=== PATIENT | female | born 1950 | race Two or more races ===

== ENCOUNTER → 2023-01-27 | Outpatient (CLI) | payer BC | END | disposition home or self-care (01) | LOC: LAB 13:04 | PROVIDERS: ATTEND Internal Medicine | DX: E11.9 Type 2 diabetes mellitus without complications (principal); M10.9 Gout, unspecified | CPT/HCPCS: 82270 ==

== ENCOUNTER 2023-02-22 16:11 | Inpatient (IN) | payer BC ==
[~2023-02-22] VITALS: Ht 175.3 cm; Wt 102.2 kg
[2023-02-22 17:20] LABS: Basophils # (auto) 0.1 10 ^3/uL (0-0.2); Basophils % (auto) 1.2 % (0.0-2.0); Eosinophils # (auto) 0.2 10 ^3/uL (0-0.8); Eosinophils % (auto) 2.4 % (0.0-7.0); Hematocrit 39.2 % (36.0-46.0); Hemoglobin 12.9 g/dL (12.2-16.2); Lymphocytes # (auto) 2.6 10 ^3/uL (0.4-5.4); Lymphocytes % (auto) 28.6 % (10.0-50.0); Mean Corpuscular Hemoglobin 27.7 pg (28.0-32.0); Monocytes # (auto) 0.6 10 ^3/uL (0-1.3); Neutrophils # (auto) 5.7 10 ^3/uL (1.6-8.6); Neutrophils % (auto) 61.8 % (37.0-80.0); Nucleated Red Blood Cells % 0.1 %; Red Blood Cells 4.67 10^6/uL (4.0-5.20); Red Cell Distribution Width 18.2 % (11.8-14.3); White Blood Cell 9.3 10^3/uL (4.4-10.8)
[2023-02-22 17:38] LABS: INR 0.97 (0.9-1.15); Partial Thromboplastin Time 31.5 sec (24.6-33.4)
[2023-02-22 17:51] LABS: Albumin 3.7 g/dL (3.4-5.0); Calcium 9.1 mg/dL (8.5-10.1); Magnesium 2.4 mg/dL (1.6-2.6); Potassium 3.7 mmol/L (3.5-5.1)
[2023-02-22 17:55] LABS: BUN/Creatinine Ratio 16.5 (10.0-20.0); Bilirubin, Total 0.3 mg/dL (0.2-1.0); Total Protein 7.1 g/dL (6.4-8.2)
[2023-02-22] MEDS ORDERED: NITROGLYCERIN 0.4 MG SL TAB SL ONE (18:30)
[2023-02-22] MEDS ORDERED: ALLO100T PO (19:38)
[2023-02-22] MEDS ORDERED: METO-289 PO (19:38)
[2023-02-22] MEDS ORDERED: LOS25T PO (19:38)
[2023-02-22] MEDS ORDERED: GLUC1MIS2 (19:38)
[2023-02-22] MEDS ORDERED: METF-370 PO (19:38)
[2023-02-22] MEDS ORDERED: MELO-335 PO (19:38)
[2023-02-22] MEDS ORDERED: DAPA1TAB4 PO (19:38)
[2023-02-22] MEDS ORDERED: TRIA37.587 PO (19:38)
[2023-02-22] MEDS ORDERED: SEMA4INJ SC (19:38)
[2023-02-22] MEDS ORDERED: LATA0.008 EACHEYE (19:38)
[2023-02-22] MEDS ORDERED: PANT40TA57 PO (19:38)
[2023-02-22] MEDS ORDERED: AMLO1TAB22 PO (19:38)
[2023-02-22] MEDS ORDERED: TIMO0.5S32 EACHEYE (19:38)
[2023-02-22] MEDS ORDERED: DOCUSATE SOD 100 MG CAP PO PRN (21:30)
[2023-02-22] MEDS ORDERED: ACETAMINOPHEN 325 MG TAB PO PRN (21:30)
[2023-02-22] MEDS: SODIUM CHLORIDE 0.9% 1,000 ML IV SCH (21:30)
[2023-02-22] MEDS ORDERED: ONDANSETRON HCL 4 MG/2 ML VIAL IV PRN (21:30)
[2023-02-22] MEDS ORDERED: HYDROcodone-ACET 5/325MG TAB PO PRN (21:30)
[2023-02-22] MEDS ORDERED: MORPHINE SULFATE INJ 2 MG/ml SYRG IV PRN (21:30)
[2023-02-22] MEDS: NITROGLYCERIN 0.4 MG SL TAB SL PRN ×2 (23:39→23:51)
[2023-02-23] MEDS ORDERED: hydrALAZINE HCL 20 MG/ML VL IV PRN (04:30)
[2023-02-23 05:09] LABS: Basophils # (auto) 0.1 10 ^3/uL (0-0.2); Basophils % (auto) 0.9 % (0.0-2.0); Eosinophils # (auto) 0.2 10 ^3/uL (0-0.8); Eosinophils % (auto) 2.3 % (0.0-7.0); Hematocrit 39.1 % (36.0-46.0); Lymphocytes # (auto) 2.2 10 ^3/uL (0.4-5.4); Lymphocytes % (auto) 25.2 % (10.0-50.0); Mean Corpuscular Hemoglobin 28.1 pg (28.0-32.0); Mean Corpuscular Hgb Conc. 33.3 g/dL (32.0-36.0); Mean Corpuscular Volume 84.5 fL (80.0-100.0); Monocytes # (auto) 0.6 10 ^3/uL (0-1.3); Monocytes % (auto) 6.7 % (0.0-12.0); Neutrophils # (auto) 5.6 10 ^3/uL (1.6-8.6); Neutrophils % (auto) 64.9 % (37.0-80.0); Nucleated Red Blood Cells % 0.1 %; Red Blood Cells 4.62 10^6/uL (4.0-5.20); Red Cell Distribution Width 18.2 % (11.8-14.3); White Blood Cell 8.6 10^3/uL (4.4-10.8)
[2023-02-23 05:25] LABS: Albumin 3.3 g/dL (3.4-5.0); BUN/Creatinine Ratio 15.8 (10.0-20.0); Calcium 9.2 mg/dL (8.5-10.1)
[2023-02-23 05:28] LABS: Bilirubin, Total 0.5 mg/dL (0.2-1.0); Total Protein 7.2 g/dL (6.4-8.2)
[2023-02-23] MEDS ORDERED: POTASSIUM CHL 20 Meq TABLET PO ONE (07:00)
[2023-02-23] MEDS: SODIUM CHLORIDE 0.9% 1,000 ML IV SCH (08:04)
[2023-02-23] MEDS ORDERED: METOPROLOL SUCCINATE XL 50 MG TAB PO SCH (10:00)
[2023-02-23] MEDS ORDERED: amLODIPine BESYLATE 5 MG TAB PO SCH (10:00)
[2023-02-23] MEDS ORDERED: ENOXAPARIN SOD 40 MG/0.4 ML SYRINGE SC SCH (10:00)
[2023-02-23 16:06] VITALS: BP 127/81
[2023-02-23] MEDS ORDERED: ATO40T PO (16:40)
[2023-02-23] MEDS ORDERED: ASPI1TAB20 PO (16:40)
== END 2023-02-23 16:26 | disposition home or self-care (01) | DRG 305 ==
LOC: ER 16:11 → EDBD 16:11 → TELE 21:20
PROVIDERS: ADMIT Internal Medicine; ATTEND Internal Medicine
DX: I16.0 Hypertensive urgency (principal); N17.9 Acute kidney failure, unspecified; I12.9 Hypertensive chronic kidney disease with stage 1 through stage 4 chronic kidney disease, or unspecified chronic kidney disease; E11.22 Type 2 diabetes mellitus with diabetic chronic kidney disease; E78.5 Hyperlipidemia, unspecified; N18.9 Chronic kidney disease, unspecified; E66.9 Obesity, unspecified; E87.6 Hypokalemia; Z96.653 Presence of artificial knee joint, bilateral; I25.10 Atherosclerotic heart disease of native coronary artery without angina pectoris; R07.89 Other chest pain; K21.9 Gastro-esophageal reflux disease without esophagitis; Z68.33 Body mass index [BMI] 33.0-33.9, adult; Z95.5 Presence of coronary angioplasty implant and graft
CPT/HCPCS: 36415; 71045; 80053; 83735; 83880; 84484; 85025; 85379; 85610; 85730; 93005; 93306; G0378

== ENCOUNTER → 2023-03-06 | Outpatient (CLI) | payer BC ==
[~2023-03-06] MED LIST: ALLO100T PO; AMLO1TAB22 PO; ASPI1TAB20 PO; ATO40T PO; DAPA1TAB4 PO; GLUC1MIS2; LATA0.008 EACHEYE; LOS25T PO; MELO-335 PO; METF-370 PO; METO-289 PO; PANT40TA57 PO; SEMA4INJ SC; TIMO0.5S32 EACHEYE; TRIA37.587 PO
[2023-03-06 15:54] LABS: Calcium 9.5 mg/dL (8.5-10.1)
[2023-03-06 15:58] LABS: BUN/Creatinine Ratio 17.9 (10.0-20.0); Potassium 3.7 mmol/L (3.5-5.1)
== END | disposition home or self-care (01) ==
LOC: LAB 15:02
PROVIDERS: ATTEND Internal Medicine
DX: E11.9 Type 2 diabetes mellitus without complications (principal); M10.9 Gout, unspecified
CPT/HCPCS: 36415; 80048

== ENCOUNTER → 2023-04-12 | Outpatient (CLI) | payer BC ==
[~2023-04-12] MED LIST changes: +BUPIVACAINE HCL 0.25% P/F 10 ML VIAL ONE; +LIDOCAINE 2%HCL (LOCAL ANESTH.) INJ 10ml MDV ONE; +methylPREDNISolone ACETATE 80 MG/ML VL ONE
== END | disposition home or self-care (01) ==
LOC: XYW 12:47
PROVIDERS: ATTEND Orthopaedic Surgery Adult Reconstructive Orthopaedic Surgery
DX: M75.101 Unspecified rotator cuff tear or rupture of right shoulder, not specified as traumatic (principal)
CPT/HCPCS: 20610; 73020; 77002; J1040; J2001; J3490; Q9967

== ENCOUNTER → 2023-08-31 | Outpatient (CLI) | payer BC ==
[~2023-08-31] MED LIST changes: +AML5T PO; -BUPIVACAINE HCL 0.25% P/F 10 ML VIAL ONE; +ISOS1TAB28 PO; +LATA0.008 OP; -LIDOCAINE 2%HCL (LOCAL ANESTH.) INJ 10ml MDV ONE; +LOSA25TA15 PO; +ROSU40TA81 PO; -methylPREDNISolone ACETATE 80 MG/ML VL ONE
[2023-08-31 11:04] LABS: Chloride 104 mmol/L (98-107); Potassium 3.6 mmol/L (3.5-5.1); Sodium 141 mmol/L (136-145)
[2023-08-31 11:05] LABS: Anion Gap 10 (5-15); Carbon Dioxide 27 mmol/L (20-30)
[2023-08-31 11:06] LABS: Calcium 9.6 mg/dL (8.5-10.1)
[2023-08-31 11:10] LABS: BUN/Creatinine Ratio 10.4 (10.0-20.0); Blood Urea Nitrogen 12 mg/dL (9-23); Glucose 115 mg/dL (74-106)
== END | disposition home or self-care (01) ==
LOC: LAB 10:09
PROVIDERS: ATTEND Internal Medicine
DX: E11.9 Type 2 diabetes mellitus without complications (principal)
CPT/HCPCS: 36415; 80048

== ENCOUNTER → 2023-09-05 | Outpatient (CLI) | payer BC, MEDICAID ==
[~2023-09-05] VITALS: Ht 160 cm; Wt 99.8 kg
[~2023-09-05] MED LIST changes: +ADENOSINE 84 MG in GIVE UN-DILUTED 0 ML IV ONE
== END | disposition home or self-care (01) ==
LOC: XYW 10:47
PROVIDERS: ATTEND Student in an Organized Health Care Education/Training Program
DX: R06.02 Shortness of breath (principal)
CPT/HCPCS: 78452; 93017; A9500; J0153

== ENCOUNTER → 2024-02-12 | Outpatient (CLI) | payer BC ==
[~2024-02-12] MED LIST changes: -ADENOSINE 84 MG in GIVE UN-DILUTED 0 ML IV ONE; -ATO40T PO; +ATOR-507 PO; +LOSA-533 PO; -LOSA25TA15 PO; -MELO-335 PO; +MELO15TA29 PO
[2024-02-12 10:29] LABS: Anion Gap 4 (5-15); Carbon Dioxide 34 mmol/L (20-30); Chloride 102 mmol/L (98-107); Potassium 3.8 mmol/L (3.5-5.1); Sodium 140 mmol/L (136-145)
[2024-02-12 10:35] LABS: BUN/Creatinine Ratio 14.6 (10.0-20.0); Blood Urea Nitrogen 15 mg/dL (9-23); Glucose 104 mg/dL (74-106)
== END | disposition home or self-care (01) ==
LOC: LAB 09:33
PROVIDERS: ATTEND Internal Medicine
DX: Z12.11 Encounter for screening for malignant neoplasm of colon (principal); E11.9 Type 2 diabetes mellitus without complications
CPT/HCPCS: 36415; 80048; 82270

== ENCOUNTER → 2024-04-01 | Outpatient (CLI) | payer BC | END | disposition home or self-care (01) | LOC: XYW 13:02 | PROVIDERS: ATTEND Student in an Organized Health Care Education/Training Program | DX: I08.0 Rheumatic disorders of both mitral and aortic valves (principal); R06.02 Shortness of breath | CPT/HCPCS: 93306 ==

== ENCOUNTER → 2024-05-09 | Outpatient (CLI) | payer BC ==
[~2024-05-09] VITALS: Ht 160 cm; Wt 99.3 kg
[2024-05-09] MEDS: ADENOSINE 83 MG in GIVE UN-DILUTED 0 ML IV ONE (11:21)
== END | disposition home or self-care (01) ==
LOC: XYW 10:20
PROVIDERS: ATTEND Student in an Organized Health Care Education/Training Program
DX: I25.10 Atherosclerotic heart disease of native coronary artery without angina pectoris (principal); I25.9 Chronic ischemic heart disease, unspecified; E11.9 Type 2 diabetes mellitus without complications; I10 Essential (primary) hypertension
CPT/HCPCS: 78452; A9500; J0153

== ENCOUNTER → 2024-06-11 | Day surgery (SDC) | payer BC ==
[2024-06-05 10:47] LABS: Basophils # (auto) 0.1 10 ^3/uL (0-0.2); Eosinophils # (auto) 0.3 10 ^3/uL (0-0.8); Eosinophils % (auto) 3.3 % (0.0-7.0); Hematocrit 41.6 % (36.0-46.0); Lymphocytes # (auto) 2.8 10 ^3/uL (0.4-5.4); Lymphocytes % (auto) 33.5 % (10.0-50.0); Mean Corpuscular Hgb Conc. 33.7 g/dL (32.0-36.0); Mean Corpuscular Volume 86.1 fL (80.0-100.0); Monocytes # (auto) 0.6 10 ^3/uL (0-1.3); Monocytes % (auto) 7.3 % (0.0-12.0); Neutrophils # (auto) 4.6 10 ^3/uL (1.6-8.6); Neutrophils % (auto) 54.9 % (37.0-80.0); Platelet Count (auto) 309 10^3/uL (140-450); Red Blood Cells 4.83 10^6/uL (4.0-5.20); Red Cell Distribution Width 17.4 % (11.8-14.3); White Blood Cell 8.4 10^3/uL (4.4-10.8)
[2024-06-05 11:01] LABS: Alanine Aminotransferase 12 U/L (7-40); Albumin 4.9 g/dL (3.2-4.8); Alkaline Phosphatase 83 U/L (46-116); Anion Gap 8 (5-15); Aspartate Aminotransferase 9 U/L (13-40); BUN/Creatinine Ratio 16.9 (10.0-20.0); Bilirubin, Total 0.3 mg/dL (0.2-1.0); Blood Urea Nitrogen 24 mg/dL (9-23); Calcium 10.2 mg/dL (8.7-10.4); Carbon Dioxide 29 mmol/L (20-30); Chloride 105 mmol/L (98-107); Glucose 112 mg/dL (74-106); INR 0.99 (0.9-1.15); Partial Thromboplastin Time 28.7 SEC (24.5-34.5); Potassium 3.8 mmol/L (3.5-5.1); Prothrombin Time 10.5 sec (9.3-11.8); Sodium 142 mmol/L (136-145); Total Protein 7.9 g/dL (5.7-8.2)
[2024-06-05 11:17] LABS: Urine Bacteria FEW /hpf (None Seen); Urine Blood TRACE /uL (Negative); Urine Clarity Turbid (Clear); Urine Color Yellow (Yellow); Urine Mucus FEW (None Seen); Urine Protein, UAD 1+ (Negative); Urine Specific Gravity 1.033 (1.001-1.035); Urine Urobilinogen 2 mg/dL (Negative); Urine WBC 48 /hpf (0 - 5)
[~2024-06-11] VITALS: Ht 160 cm; Wt 98.0 kg
[~2024-06-11] MED LIST changes: -AMLO1TAB22 PO; +ASPI-498 OR; -ASPI1TAB20 PO; -ATOR-507 PO; +CEPH500C PO; +EPINEPHrine HCL 1 MG/1 ML AMP ONE; +HYDR1TAB97 PO; +KETOROLAC TROMETH 30 MG/ML 1ML VIAL IV ONE; +KETOROLAC TROMETH 30 MG/ML 1ML VIAL ONE; -LATA0.008 EACHEYE; -LOSA-533 PO; +METOCLOPRAMIDE HCL 5MG/ml INJ 2ml VIAL IV ONE; +MIDAZOLAM HCL 2MG/2ML 2ml VIAL (1mg/ml) ONE; +MORPHINE SULF PF 5 MG/10 ML VIAL ONE; +MORPHINE SULFATE 4 MG/ML SYR/VIAL IV PRN; +ONDANSETRON HCL 4 MG/2 ML VIAL IV ONE; +ROPIVACAINE 0.5% (5MG/ML) 20ML AMPULE IJ ONE; +SUGAMMADEX 200mg/2ml Vial (100MG/ML) IV ONE; +TRANEXAMIC ACID 10 ML ONE; +ceFAZolin 2 GM/D5W100ml 100 ML IV ONE; +hydrALAZINE HCL 20 MG/ML VL IV PRN
[2024-06-11 14:21] VITALS: PULSE 96; RESP 17; TEMP 97.5; O2SAT 97
[2024-06-11] MEDS: KETOROLAC TROMETH 30 MG/ML 1ML VIAL IV ONE (15:20)
[2024-06-11 15:25] VITALS: BP 148/73; PULSE 96; RESP 17; O2SAT 98
== END | disposition home or self-care (01) ==
LOC: SUR 10:57
PROVIDERS: ATTEND Orthopaedic Surgery Sports Medicine
DX: M75.112 Incomplete rotator cuff tear or rupture of left shoulder, not specified as traumatic (principal); M25.812 Other specified joint disorders, left shoulder; M94.212 Chondromalacia, left shoulder; M65.812 Other synovitis and tenosynovitis, left shoulder; I25.2 Old myocardial infarction; E11.9 Type 2 diabetes mellitus without complications; I25.10 Atherosclerotic heart disease of native coronary artery without angina pectoris; K21.9 Gastro-esophageal reflux disease without esophagitis; E66.01 Morbid (severe) obesity due to excess calories; Z90.710 Acquired absence of both cervix and uterus; Z98.890 Other specified postprocedural states; Z98.41 Cataract extraction status, right eye; Z68.41 Body mass index [BMI] 40.0-44.9, adult; Z79.82 Long term (current) use of aspirin; Z79.84 Long term (current) use of oral hypoglycemic drugs
CPT/HCPCS: 29826; 29827; 36415; 80053; 81001; 82962; 85025; 85610; 85730; C1713; J0171; J1885; J2250; J2270; J2795; A4565

== ENCOUNTER → 2024-08-28 | Outpatient (CLI) | payer BC ==
[~2024-08-28] MED LIST changes: -EPINEPHrine HCL 1 MG/1 ML AMP ONE; -KETOROLAC TROMETH 30 MG/ML 1ML VIAL IV ONE; -KETOROLAC TROMETH 30 MG/ML 1ML VIAL ONE; -METOCLOPRAMIDE HCL 5MG/ml INJ 2ml VIAL IV ONE; -MIDAZOLAM HCL 2MG/2ML 2ml VIAL (1mg/ml) ONE; -MORPHINE SULF PF 5 MG/10 ML VIAL ONE; -MORPHINE SULFATE 4 MG/ML SYR/VIAL IV PRN; -ONDANSETRON HCL 4 MG/2 ML VIAL IV ONE; -ROPIVACAINE 0.5% (5MG/ML) 20ML AMPULE IJ ONE; -SUGAMMADEX 200mg/2ml Vial (100MG/ML) IV ONE; -TRANEXAMIC ACID 10 ML ONE; -ceFAZolin 2 GM/D5W100ml 100 ML IV ONE; -hydrALAZINE HCL 20 MG/ML VL IV PRN
== END | disposition home or self-care (01) ==
LOC: LAB 09:21
PROVIDERS: ATTEND Internal Medicine
DX: E11.9 Type 2 diabetes mellitus without complications (principal)
CPT/HCPCS: 36415; 83036

== ENCOUNTER → 2024-10-16 | Outpatient (CLI) | payer BC ==
[2024-10-16 08:33] LABS: Basophils # (auto) 0.1 10 ^3/uL (0-0.2); Basophils % (auto) 1.1 % (0.0-2.0); Eosinophils # (auto) 0.2 10 ^3/uL (0-0.8); Eosinophils % (auto) 3.1 % (0.0-7.0); Hemoglobin 13.7 g/dL (12.2-16.2); Lymphocytes # (auto) 2.4 10 ^3/uL (0.4-5.4); Lymphocytes % (auto) 33.5 % (10.0-50.0); Mean Corpuscular Hemoglobin 28.7 pg (28.0-32.0); Mean Corpuscular Hgb Conc. 33.5 g/dL (32.0-36.0); Mean Corpuscular Volume 85.6 fL (80.0-100.0); Monocytes # (auto) 0.5 10 ^3/uL (0-1.3); Neutrophils % (auto) 55.3 % (37.0-80.0); Platelet Count (auto) 269 10^3/uL (140-450); Red Blood Cells 4.79 10^6/uL (4.0-5.20); Red Cell Distribution Width 16.3 % (11.8-14.3); White Blood Cell 7.3 10^3/uL (4.4-10.8)
[2024-10-16 10:36] LABS: Alkaline Phosphatase 79 U/L (46-116); Anion Gap 10 (5-15); Calcium 10.1 mg/dL (8.7-10.4); Carbon Dioxide 28 mmol/L (20-31); Chloride 103 mmol/L (98-107); Potassium 3.7 mmol/L (3.5-5.1); Sodium 141 mmol/L (136-145)
[2024-10-16 10:37] LABS: Albumin 4.8 g/dL (3.2-4.8); BUN/Creatinine Ratio 15.4 (10.0-20.0); Blood Urea Nitrogen 18 mg/dL (9-23); Folate (Folic Acid) 13.71 ng/mL (>5.38)
[2024-10-16 10:38] LABS: Alanine Aminotransferase 9 U/L (7-40); Aspartate Aminotransferase 14 U/L (13-40); Creatine Kinase IFCC 82 U/L (34-145); Glucose 124 mg/dL (74-106)
[2024-10-16 10:39] LABS: Bilirubin, Total 0.5 mg/dL (0.2-1.0); Total Protein 7.4 g/dL (5.7-8.2)
== END | disposition home or self-care (01) ==
LOC: LAB 08:06
PROVIDERS: ATTEND Internal Medicine
DX: E11.22 Type 2 diabetes mellitus with diabetic chronic kidney disease (principal); I25.10 Atherosclerotic heart disease of native coronary artery without angina pectoris; N18.30 Chronic kidney disease, stage 3 unspecified
CPT/HCPCS: 36415; 80053; 82550; 82607; 82746; 83036; 84443; 85025

== ENCOUNTER → 2024-10-22 | Outpatient (CLI) | payer BC | END | disposition home or self-care (01) | LOC: LAB 13:18 | PROVIDERS: ATTEND Internal Medicine | DX: N39.0 Urinary tract infection, site not specified (principal) | CPT/HCPCS: 87086 ==

== ENCOUNTER → 2024-11-28 | Outpatient (CLI) | payer BC ==
[2024-11-28 07:59] LABS: Calcium 9.7 mg/dL (8.7-10.4); Chloride 105 mmol/L (98-107); Potassium 3.9 mmol/L (3.5-5.1); Sodium 141 mmol/L (136-145)
[2024-11-28 08:00] LABS: Anion Gap 8 (5-15); Carbon Dioxide 28 mmol/L (20-31)
[2024-11-28 08:05] LABS: BUN/Creatinine Ratio 17.5 (10.0-20.0); Blood Urea Nitrogen 21 mg/dL (9-23); Glucose 110 mg/dL (74-106)
== END | disposition home or self-care (01) ==
LOC: LAB 07:26
PROVIDERS: ATTEND Internal Medicine
DX: N18.31 Chronic kidney disease, stage 3a (principal)
CPT/HCPCS: 36415; 80048

== ENCOUNTER 2024-12-12 15:37 | Inpatient (IN) | payer BC ==
[~2024-12-12] VITALS: Ht 160 cm; Wt 99.8 kg
--- NOTE | 2024-12-12 16:06 | ED.PDOC ---
HPI Comments 74 y/o F, BIBA with PMHX of HTN, DM, AK, CKD, and CAD presents to the ED for CC of high blood pressure. EMS reports, patient is coming from home where she has been experiencing symptoms of vertigo since early this morning (12/12/24). EMS comments, that patient did suffer a ground level fall causing her to fall to her knees; patient ambulated well to ambulance. Patient states, that these episodes of vertigo usually manifest when her blood pressure is high; patient's blood pressure read at 178/124 in route to the ED. Patient was given 4mg of Zofran P.O. Patient denies head injury, LOC, fatigue, weakness, nausea, or vomiting. No other symptoms or modifying factors present at this time. Time Seen by MD: 15:45 Primary Care Provider: Andrés Reviewed Notes: Nurses Notes, Block Feeder Notes, Medications, Allergies Allergies: Coded Allergies: NO KNOWN ALLERGIES (Unverified , 05/09/24) Home Meds Active Scripts Cephalexin Monohydrate (Cephalexin) 500 Mg Cap, 1 CAP PO TID for 5 Days, #15 CAP Prov:ABEL YODER MD 06/11/24 Aspirin (ASPIRIN 81) 81 Mg Tab, 81 MG OR DAILY for 20 Days, #20 TAB Prov:ABEL YODER MD 06/11/24 Hydrocodone-Acetaminophen (Hydrocodone/Acetaminophen 5-325 mg) 1 Tab Tab, 1 TAB PO Q6HP PRN for 7 Days, #28 TAB Prov:ABEL YODER MD 06/11/24 Reported Medications Semaglutide (Ozempic) 4 Mg/3 Ml Inj, SC 02/22/23 Losartan Potassium (Losartan Potassium) 25 Mg Tab, 1 TAB PO DAILY 02/22/23 Pantoprazole Sodium Sesquihydr (Pantoprazole Sodium Dr) 40 Mg Tab, 1 TAB PO BID 02/22/23 Glucose Blood (Accu-Chek Guide) 1 Mis Mis, 1 STRIP BID 02/22/23 Metoprolol Succinate (Metoprolol Succinate Er) 50 Mg Tab, 1 TAB PO BID 02/22/23 Dapagliflozin Propanediol (Farxiga) 10 Mg Tab, 1 TAB PO QAM 02/22/23 Allopurinol (Allopurinol) 100 Mg Tab, 1 TAB PO DAILY 02/22/23 Timolol Maleate (Ophth) (Timolol Maleate) 0.5 % Dasia, 1 DROP EACHEYE QAM 02/22/23 Meloxicam (Meloxicam) 15 Mg Tab, 1 TAB PO DAILY 02/22/23 Latanoprost (LATANOPROST) 0.005 % Dasia, 0.005 % OP, ML 03/01/22 Metformin Hydrochloride (Metformin Hcl) 500 Mg Tab, 500 MG PO BID, TAB 03/01/22 Rosuvastatin Calcium (Crestor) 40 Mg Tab, 40 MG PO DAILY, TAB 03/01/22 Hydrochlorothiazide W/Triamter (Dyazide 37.5/25MG) 1 Cap Cp, 1 CAP PO DAILY, CAP 03/01/22 Amlodipine Besylate (NORVASC TABLET) 5 Mg Tb, 5 MG PO DAILY, TAB 03/01/22 Isosorbide Mononitrate (Isosorbide Mononitrate Er) 30 Mg Tab, 30 MG PO DAILY, TAB 03/01/22 Information Source: Patient, Emergency Med Personnel Mode of Arrival: EMS Severity: Moderate Timing: Hours Duration: Since onset Prehospital treatment: None Onset: At Rest Cardiac Risk Factors: HTN, Diabetes PE Risk Factors: None History of: None Modifying Factors: Nothing Associated Signs and Symptoms: None Past Medical History PAST MEDICAL HISTORY: Arthritis, CAD, DM, High Lipids, HTN Surgical History (Other): cataracts, left shoulder 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 Family History Family History: Reviewed,noncontributory to illness Social History Smoker: Non-Smoker Alcohol: Denies ETOH Use Drugs: Denies Drug Use Lives In: Home Constitutional: denies: chills, diaphoresis, fatigue, fever, malaise, sweats, weakness, others EENTM: denies: blurred vision, double vision, ear bleeding, ear discharge, ear drainage, ear pain, ear ringing, eye pain, eye redness, hearing loss, mouth pain, mouth swelling, nasal discharge, nose bleeding, nose congestion, nose pain, photophobia, tearing, throat pain, throat swelling, voice changes, others Respiratory: denies: cough, hemoptysis, orthopnea, SOB at rest, shortness of breath, SOB with excertion, stridor, wheezing, others Cardiovascular: denies: chest pain, dizzy spells, diaphoresis, Dyspnea on exertion, edema, irregular heart beat, left arm pain, lightheadedness, palpitations, PND, syncope, others Gastrointestinal: denies: abdomen distended, abdominal pain, blood streaked bowels, constipated, diarrhea, dysphagia, difficulty swallowing, hematemesis, melena, nausea, poor appetite, poor fluid intake, rectal bleeding, rectal pain, vomiting, others Genitourinary: denies: abnormal vagina bleeding, burning, dyspareunia, dysuria, flank pain, frequency, hematuria, incontinence, pain, , vagina d ischarge, urgency, others Neurological: reports: dizziness; denies: fainting, headache, left sided numbness, left sided weakness, numbness, paresthesia, pre-existing deficit, right sided numbness, right sided weakness, seizure, speech problems, tingling, tremors, weakness, others Musculoskeletal: denies: back pain, gout, joint pain, joint swelling, muscle pain, muscle stiffness, neck pain, others Integumetry: denies: bruises, change in color, change in hair/nails, dryness, laceration, lesions, lumps, rash, wounds, others Allergic/Immunocompromised: denies: Difficulty Healing, Frequent Infections, Hives, Itching, others Hematologic/Lymphatic: denies: anemia, blood clots, easy bleeding, easy bruising, swollen glands, others Endocrine: denies: excessive hunger, excessive sweating, excessive thirst, excessive urination, flushing, intolerance to cold, intolerance to heat, unexplained weight gain, unexplained weight loss, others Psychiatric: denies: anxiety, bipolar disorder, depression, hopeless, panic disorder, schizophrenia, sleepless, suicidal, others All Other Systems: Reviewed and Negative Physical Exam General Appearance: Moderate Distress HEENT: Normal ENT Inspection, Pharynx Normal, TMs Normal Neck: Full Range of Motion, Non-Tender, Normal, Normal Inspection Respiratory: Chest Non-Tender, Lungs Clear, No Accessory Muscle Use, No Respiratory Distress, Normal Breath Sounds Cardiovascular: No Edema, No JVD, No Murmur, No Gallop, Normal Peripheral Pu lses, Regular Rate/Rhythm Breast Exam: Deferred Gastrointestinal: No Organomegaly, Non Tender, No Pulsatile Mass, Normal Bowel Sounds, Soft Genitalia: Deferred Pelvic: Deferred Rectal: Deferred Extremities: No calf tenderness, Normal capillary refill, Normal inspection, Normal range of motion, Non-tender, No pedal edema Musculoskeletal : Apperance: Normal Neurologic: Alert, mail distributor II-XII nml as Tested, Motor Weakness, Normal Affect, Normal Mood, No Sensory Deficits Cerebellar Function: Normal Reflexes: Normal Skin: Dry, Normal Color, Warm Lymphatic: No Adenopathy EKG EKG : Pulse Rate (adult): 83 [place]: Normal Cardiac Rhythm: NSR Block: None ST: Nonsp Was a procedure done? Was a procedure done?: No CP Differential Dx Differential Diagnosis: N/A Differential Diagnosis: HTN Essential, HTN Accelerated X-Ray, Labs, Meds, VS Vital Signs Date Time Temp Pulse Resp B/P (MAP) Pulse Ox O2 Delivery O2 Flow Rate FiO2 12/12/24 16:56 84 171/83 12/12/24 16:31 97.6 89 16 171/83 (112) 97 97.6 12/12/24 16:31 89 16 97 Room Air* 0 21 12/12/24 16:31 83 12/12/24 16:06 97.9 86 18 178/124 (142) 99 97.9 Lab Test 12/12/24 16:56 12/12/24 16:03 Range/Units Troponin I High Sensitivity Pending 3 L </=34 ng/L White Blood Count 8.0 4.4-10.8 10^3/uL Red Blood Count 5.00 4.0-5.20 10^6/uL Hemoglobin 14.6 12.2-16.2 g/dL Hematocrit 43.8 36.0-46.0 % Mean Corpuscular Volume 87.4 80.0-100.0 fL Mean Corpuscular Hemoglobin 29.2 28.0-32.0 pg Mean Corpuscular Hemoglobin Concent 33.4 32.0-36.0 g/dL Red Cell Distribution Width 16.5 H 11.8-14.3 % Platelet Count 328 140-450 10^3/uL Mean Platelet Volume 8.1 6.9-10.8 fL Neutrophils (%) (Auto) 59.9 37.0-80.0 % Lymphocytes (%) (Auto) 30.3 10.0-50.0 % Monocytes (%) (Auto) 7.2 0.0-12.0 % Eosinophils (%) (Auto) 1.7 0.0-7.0 % Basophils (%) (Auto) 0.9 0.0-2.0 % Neutrophils # (Auto) 4.8 1.6-8.6 10 ^3/uL Lymphocytes # (Auto) 2.4 0.4-5.4 10 ^3/uL Monocytes # (Auto) 0.6 0-1.3 10 ^3/uL Eosinophils # (Auto) 0.1 0-0.8 10 ^3/uL Basophils # (Auto) 0.1 0-0.2 10 ^3/uL Nucleated Red Blood Cells 0.0 % Sodium Level 140 136-145 mmol/L Potassium Level 3.8 3.5-5.1 mmol/L Chloride Level 103 98-107 mmol/L Carbon Dioxide Level 28 20-31 mmol/L Anion Gap 9 5-15 Blood Urea Nitrogen 23 9-23 mg/dL Creatinine 1.30 H 0.550-1.02 mg/dL Glomerular Filtration Rate Calc 43 >90 mL/min BUN/Creatinine Ratio 17.7 10.0-20.0 Serum Glucose 98 74-106 mg/dL Calcium Level 10.5 H 8.7-10.4 mg/dL B-Type Natriuretic Peptide 39.70 0-100 pg/mL Current Medications Medications (Trade) Dose Ordered Sig/Eboni Route Start Time Stop Time Status Last Admin Aspirin 162 mg ONCE ONCE PO 12/12/24 16:00 12/12/24 16:01 DC 12/12/24 16:52 Nicardipine HCl 250 ml @ 50 mls/hr Q5H IV 12/12/24 16:00 12/12/24 16:56 CXR: IMPRESSION: 1. No acute cardiopulmonary disease. Images Reviewed?: Images reviewed and evaluated by me Time of 1ST Reevaluation: 16:15 Reevaluation 1ST: Unchanged Patient Education/Counseling: Diagnosis, Treatment, Prognosis Family Education/Counseling: No Family Present Departure 1 Departure Time of Disposition: 17:24 Impression: Primary Impression: Accelerated hypertension Additional Impression: Autonomic dysfunction Disposition: 09 ADMITTED INPATIENT Admit to: [facility] Condition: Fair Critical Care Note Critical Care Time?: Yes (55 min-critical care time only) Stability Stability form required: Yes Unstable for transfer: Telemetry monitoring (Telemetry monitoring required), ED Physician Assesment (Clinical assesment) Heart Score Heart Score: Heart Score Response (Comments) Value History Moderate Suspicious 1 EKG Repolarization Disturb 1 Age >65 2 Risk Factors 1 or 2 risk factors 1 Troponin N/A 0 Total 5 I personally scribed for MARTITA GRANGER MD ([email or web address]) on 12/12/24 at 16:06. Electronically submitted by Opal Clinton ([employer]). I personally scribed for MARTITA GRANGER MD ([email or web address]) on 12/12/24 at 17:03. Electronically submitted by Opal Clinton ([employer] MARTITA GRANGER MD Dec 12, 2024 16:06
[2024-12-12 16:13] LABS: Basophils # (auto) 0.1 10 ^3/uL (0-0.2); Basophils % (auto) 0.9 % (0.0-2.0); Eosinophils # (auto) 0.1 10 ^3/uL (0-0.8); Eosinophils % (auto) 1.7 % (0.0-7.0); Hematocrit 43.8 % (36.0-46.0); Hemoglobin 14.6 g/dL (12.2-16.2); Lymphocytes # (auto) 2.4 10 ^3/uL (0.4-5.4); Lymphocytes % (auto) 30.3 % (10.0-50.0); Mean Corpuscular Hemoglobin 29.2 pg (28.0-32.0); Mean Corpuscular Hgb Conc. 33.4 g/dL (32.0-36.0); Mean Corpuscular Volume 87.4 fL (80.0-100.0); Monocytes # (auto) 0.6 10 ^3/uL (0-1.3); Monocytes % (auto) 7.2 % (0.0-12.0); Neutrophils # (auto) 4.8 10 ^3/uL (1.6-8.6); Neutrophils % (auto) 59.9 % (37.0-80.0); Platelet Count (auto) 328 10^3/uL (140-450); Red Cell Distribution Width 16.5 % (11.8-14.3)
[2024-12-12 16:30] LABS: Chloride 103 mmol/L (98-107); Potassium 3.8 mmol/L (3.5-5.1); Sodium 140 mmol/L (136-145)
[2024-12-12 16:31] VITALS: PULSE 89; RESP 16; O2SAT 97
[2024-12-12 16:31] LABS: Anion Gap 9 (5-15); Carbon Dioxide 28 mmol/L (20-31)
--- NOTE | 2024-12-12 16:35 | DVH ---
CHEST RADIOGRAPH Indication: CP Technique: Single frontal view of the chest was obtained Comparison: XY CHEST PORTABLE on DOS: 02/22/23 FINDINGS: Lines and Tubes: None Lungs: No focal consolidation. Pleura: No effusion. No pneumothorax. Cardiomediastinal contours: Unremarkable Bones: No acute osseous abnormality. IMPRESSION: 1. No acute cardiopulmonary disease.
[2024-12-12 16:36] LABS: BUN/Creatinine Ratio 17.7 (10.0-20.0); Glucose 98 mg/dL (74-106)
[2024-12-12 16:38] LABS: Blood Urea Nitrogen 23 mg/dL (9-23); Calcium 10.5 mg/dL (8.7-10.4)
[2024-12-12] MEDS: ASPirin 81 mg TAB PO ONE (16:52)
[2024-12-12 18:01] LABS: Urine Bacteria None Seen /hpf (None Seen)
[2024-12-12 18:18] LABS: Urine Blood Negative /uL (Negative); Urine Clarity Clear (Clear); Urine Color Colorless (Yellow); Urine Protein, UAD Negative (Negative); Urine Specific Gravity 1.007 (1.001-1.035); Urine Squamous Epithelial Cell FEW /hpf (<5); Urine Urobilinogen Normal (Negative); Urine WBC < 1 /HPF (0-5)
--- NOTE | 2024-12-12 18:58 | ECG ---
[facility] Test Date: 2024-12-12 Test Time: 16:15:53 Pat Name: GLORIA RIVAS Department: ED Room: [address] [place] [address] Gender: F Motor Adjuster: RUBI : 1950 Requested By: MARTITA GRANGER Order Number: [id number] Reading MD: Maicol Bowen Measurements Intervals [place] Rate: 83 P: 67 NC: 145 QRS: 23 QRSD: 87 T: 64 QT: 389 QTc: 457 Interpretive Statements Sinus rhythm Electronically Signed On 12-13-2024 18:49:19 PDT by Maicol Bowen Please click the below link to view image of tracing.
[2024-12-12] MEDS ORDERED: MORPHINE SULFATE INJ 2 MG/ml SYRG IV PRN (20:00)
[2024-12-12] MEDS ORDERED: NITROGLYCERIN 0.4 MG SL TAB SL PRN (20:00)
[2024-12-12] MEDS ORDERED: DEXTROSE (50%) 50ML SYRG IV PRN (20:15)
[2024-12-12] MEDS: InsuLIN REG 1unit/0.01ml Soln (100units/ml) SC SCH (22:00)
[2024-12-12] MEDS: ACCU-CHEK COMFORT CURVE STRIP VI SCH (22:00)
--- NOTE | 2024-12-12 22:27 | DVH ---
CT BRAIN WITHOUT CONTRAST HISTORY: Headache/hypertension TECHNIQUE: Axial scans were obtained from the skull base through the vertex without contrast. [place] l and coronal reformats were generated. One or more of the following radiation dose reduction techniq ues were used for this examination: automated exposure control, adjustment of the mA and/or kV accord ing to patient size, use of iterative reconstruction technique. COMPARISON: None available FINDINGS: No acute intracranial hemorrhage or evidence of large vessel territorial infarction identified at thi s time. No midline shift. The basilar cisterns are patent. The visualized paranasal sinuses and mastoid air cells are clear. No grossly displaced calvarial abno rmalities identified. IMPRESSION: No acute intracranial findings. If symptoms persist, follow-up MRI may be considered to further evalu ate.
[2024-12-12] MEDS: METOPROLOL TARTRATE 50 MG TAB PO SCH (22:44)
[2024-12-12] MEDS: ATORVASTATIN 20 MG TAB PO SCH (22:44)
[2024-12-12 23:19] VITALS: PULSE 82; RESP 13; O2SAT 97
[2024-12-13] VITALS (10 sets, daily range): BP systolic 94–108; BP diastolic 58–67; PULSE 76–97; RESP 16–18; TEMP 97.4–98; O2SAT 95–98
[2024-12-13] MEDS: ACETAMINOPHEN 325 MG TAB PO PRN (01:19)
--- NOTE | 2024-12-13 04:25 | DVHHP2 ---
History of Present Illness Reason for Visit: Dizziness History of Present Illness 74-year-old female presents for evaluation of dizziness. Patient reports developing being weakness and dizziness yesterday and had a near syncopal episode. She states that when she checked her blood pressure initially was in the 180s. She took all her medications for hypertension. She states her repeat blood pressure was in the 200s so she presented for further evaluation. Currently denies chest pain or palpitations. Denies shortness or breath. Past Medical History Dyslipidemia, hypertension, diabetes mellitus, CAD, chronic kidney disease Past Surgical History Left shoulder surgery Family History Noncontributory Smoke: No ALCOHOL: none Drugs: None Lives: with Family Review of Systems Review of Systems Review of systems are currently negative otherwise addressed in HPI. Allergies: Coded Allergies: NO KNOWN ALLERGIES (Unverified , 05/09/24) Medications Current Medications Medications Dose Ordered Sig/Eboni Route Start Time Stop Time Status Last Admin Dose Admin Nicardipine HCl 250 ml @ 50 mls/hr Q5H IV 12/12/24 16:00 12/12/24 21:10 50 MLS/HR Nitroglycerin 0.4 mg Q5MINP PRN SL 12/12/24 20:00 Morphine Sulfate 2 mg Q30M PRN IV 12/12/24 20:00 Amlodipine Besylate 5 mg DAILY PO 12/13/24 10:00 Aspirin 81 mg DAILY PO 12/13/24 10:00 Triamterene/HCTZ 1 cap DAILY PO 12/13/24 10:00 Isosorbide Mononitrate 30 mg DAILY PO 12/13/24 10:00 Losartan Potassium 25 mg DAILY PO 12/13/24 10:00 Metoprolol Tartrate 50 mg BID PO 12/12/24 22:00 12/12/24 22:44 50 MG Atorvastatin Calcium 40 mg HS PO 12/12/24 22:00 12/12/24 22:44 40 MG Pantoprazole Sodium 40 mg DAILY@0600 PO 12/13/24 06:00 Diagnostic Test (Pha) 1 strip ACHS 12/12/24 22:00 12/12/24 22:00 1 STRIP Insulin Human Regular ACHS SC 12/12/24 22:00 Dextrose 50 ml UD PRN IV 12/12/24 20:15 Ondansetron HCl 4 mg Q4HP PRN IV 12/12/24 20:15 Enoxaparin Sodium 40 mg DAILY SC 12/13/24 10:00 Acetaminophen 650 mg Q6HP PRN PO 12/12/24 20:15 12/13/24 01:19 650 MG Exam Vital Signs Vital Signs Date Time Temp Pulse Resp B/P (MAP) Pulse Ox O2 Delivery O2 Flow Rate FiO2 12/13/24 03:30 83 16 139/70 (93) 94 12/12/24 23:30 97.9 97.9 12/12/24 23:19 Room Air* 0 21 21 Exam Gen: 74-year-old female in mild distress. Skin: Warm, dry, normal color and texture, no rash. HEENT: Normocephalic atraumatic, mucous membranes moist and pink. Neck: Cervical and supraclavicular nodes normal without enlargement, trachea is midline, thyroid gland is normal without masses. Pulmonary: Clear to auscultation and percussion bilaterally. Cardiac: Regular rate and rhythm. No murmur Abdomen: Soft, nontender, nondistended, bowel sounds present all 4 quadrants, no guarding, no rigidity, no organomegaly. Extremities: No cyanosis, clubbing, no edema Neuro: Cranial nerves II through XII grossly intact, normal affect and speech, no focal motor deficits. Labs/Xrays ORDERING PHYSICIAN: DAI QUIROZ MD PROCEDURE(s): ECIDC - ECHO 2D MODE CARDIAC DOP REASON: R06.02 ORDER NUMBER(s): [id number], ACCESSION NUMBER(s): [id number] APPROVED REPORT EXAM: Two-dimensional and M-mode echocardiogram with Doppler and color Doppler. RISK FACTORS Obesity: Height: 5'3", Weight: 215 DIMENSIONS LVDd (3.8-5.7cm) LA (2D) 3.7 (1.9-4.0cm) Aortic Root 3.1 (2.0- 3.7cm) LVDs (2.5-4.0cm) LA (MM) (1.9-4.0cm) Aortic Cusp Exc 1.1 (1.5- 2.0cm) EF (%) 65.0 (55-70%) Rt. Atrium 3.5 (1.9-4.0cm) Asc. Aorta cm IVSd 1.7 (0.7-1.1cm) RV (D) (1.8-2.4cm) Mitral Valve Mitral Mitral Stenosis E wave 0.90m/s MV Mean GR. 3mmHg A wave 1.23m/s MV Peak GR. 7mmHg E/A ratio 0.7 2D MVA cm2 DECEL Time 377ms PRESS 1/2 Time 69ms IVRT ms Dop MVA 3.20cm2 Aortic Valve Aortic Valve Aortic Stenosis V1 1.14m/s AO Mean GR. 6mmHg V2 1.69m/s AO Peak GR. 11mmHg LVOT Diameter 1.9 (1.8-2.4cm) Doppler CITLALI 1.91cm2 Pulmonic Valve V2 0.80m/s Tricuspid Valve TR Velocity 2.75m/s RVSP 33mmHg Other Information Quality : Technically Limited Rhythm : Technically limited study due to body habitus. Conclusion Normal left ventricular size and dimension. Normal left ventricular systolic function. Estimated ejection fraction of 55%. There is a grade 1 diastolic dysfunction. Normal right ventricular size and dimension. Normal right ventricular systolic function. Slightly elevated right ventricular systolic pressure 33 mm Hg, Normal biatrial size and dimension. The aortic valve is thickened and sclerotic. No significant stenosis mild regurgitation. The mitral valve has mitral annular calcifications there is no significant mitral valve. Tricuspid valve appears normal structure and function. The pulmonary valve is grossly normal. No pericardial effusion. ORDERING PHYSICIAN: MARTITA GRANGER MD PROCEDURE(s): CXRP - CHEST PORTABLE REASON: CP ORDER NUMBER(s): [id number], ACCESSION NUMBER(s): [id number] CHEST RADIOGRAPH Indication: CP Technique: Single frontal view of the chest was obtained Comparison: XY CHEST PORTABLE on DOS: 02/22/23 FINDINGS: Lines and Tubes: None Lungs: No focal consolidation. Pleura: No effusion. No pneumothorax. Cardiomediastinal contours: Unremarkable Bones: No acute osseous abnormality. IMPRESSION: 1. No acute cardiopulmonary disease. RING PHYSICIAN: MIKALA JEANCNAlireza PROCEDURE(s): HWOCT - HEAD WITHOUT CONTRAST REASON: Headache/hypertension ORDER NUMBER(s): [id number], ACCESSION NUMBER(s): [id number] CT BRAIN WITHOUT CONTRAST HISTORY: Headache/hypertension TECHNIQUE: Axial scans were obtained from the skull base through the vertex without contrast. [place]l and coronal reformats were generated. One or more of the following radiation dose reduction techniques were used for this examination: automated exposure control, adjustment of the mA and/or kV according to patient size, use of iterative reconstruction technique. COMPARISON: None available FINDINGS: No acute intracranial hemorrhage or evidence of large vessel territorial infarction identified at this time. No midline shift. The basilar cisterns are patent. The visualized paranasal sinuses and mastoid air cells are clear. No grossly displaced calvarial abnormalities identified. IMPRESSION: No acute intracranial findings. If symptoms persist, follow-up MRI may be considered to further evaluate. Labs Test 12/12/24 22:34 12/12/24 18:52 12/12/24 17:50 12/12/24 16:03 Range/Units POC Glucose 128 H 70-106 mg/dl Troponin I High Sensitivity 3 L </=34 ng/L Urine Color Colorless Yellow Urine Clarity Clear Clear Urine pH 7.0 5.0-9.0 Urine Specific [place] 1.007 1.001-1.035 Urine Protein Negative Negative Urine Ketones Negative Negative Urine Blood Negative Negative /uL Urine Nitrite Negative Negative Urine Bilirubin Negative Negative Urine Urobilinogen Normal Negative mg/dL Urine Leukocyte Esterase Negative Negative /uL Urine RBC 1 0 - 4 /hpf Urine Microscopic WBC < 1 0-5 /HPF Urine Squamous Epithelial Cells Few <5 /hpf Urine Bacteria None seen None Seen /hpf Urine Glucose 4+ H Normal mg/dL White Blood Count 8.0 4.4-10.8 10^3/uL Red Blood Count 5.00 4.0-5.20 10^6/uL Hemoglobin 14.6 12.2-16.2 g/dL Hematocrit 43.8 36.0-46.0 % Mean Corpuscular Volume 87.4 80.0-100.0 fL Mean Corpuscular Hemoglobin 29.2 28.0-32.0 pg Mean Corpuscular Hemoglobin Concent 33.4 32.0-36.0 g/dL Red Cell Distribution Width 16.5 H 11.8-14.3 % Platelet Count 328 140-450 10^3/uL Mean Platelet Volume 8.1 6.9-10.8 fL Neutrophils (%) (Auto) 59.9 37.0-80.0 % Lymphocytes (%) (Auto) 30.3 10.0-50.0 % Monocytes (%) (Auto) 7.2 0.0-12.0 % Eosinophils (%) (Auto) 1.7 0.0-7.0 % Basophils (%) (Auto) 0.9 0.0-2.0 % Neutrophils # (Auto) 4.8 1.6-8.6 10 ^3/uL Lymphocytes # (Auto) 2.4 0.4-5.4 10 ^3/uL Monocytes # (Auto) 0.6 0-1.3 10 ^3/uL Eosinophils # (Auto) 0.1 0-0.8 10 ^3/uL Basophils # (Auto) 0.1 0-0.2 10 ^3/uL Nucleated Red Blood Cells 0.0 % Sodium Level 140 136-145 mmol/L Potassium Level 3.8 3.5-5.1 mmol/L Chloride Level 103 98-107 mmol/L Carbon Dioxide Level 28 20-31 mmol/L Anion Gap 9 5-15 Blood Urea Nitrogen 23 9-23 mg/dL Creatinine 1.30 H 0.550-1.02 mg/dL Glomerular Filtration Rate Calc 43 >90 mL/min BUN/Creatinine Ratio 17.7 10.0-20.0 Serum Glucose 98 74-106 mg/dL Calcium Level 10.5 H 8.7-10.4 mg/dL B-Type Natriuretic Peptide 39.70 0-100 pg/mL Thyroid Stimulating Hormone (TSH) 1.95 0.55-4.78 uIU/mL Assessment/Plan Assessment/Plan Assessment Hypertensive urgency Acute kidney injury Diabetes mellitus Admit the patient to [facility] to the hospitalist Continue nicardipine drip Resume home medications Continue treatment per orders. Total critical care time excluding procedures performed this 50 minutes. Plan discussed with: Patient My Orders Orders - MIKALA JEAN AGACNP Procedure Category Date Status Time Admit ADMIT 12/12/24 Transmitted 20:00 Nitroglycerin PHA 12/12/24 In Process Sublingual (Ntrostat 20:00 Morphine Sulfate PHA 12/12/24 In Process Injection 20:00 Stat Ekg For Chest DIANA 12/12/24 In Process Pain 20:00 Notify Md Of Changes DIANA 12/12/24 In Process From Base 20:00 Tour Production Supervisor For DIANA 12/12/24 In Process 24 Hours 20:00 Emergency Dysrhythmia DIANA 12/12/24 In Process Protocol 20:00 Rhythm Strips Once DIANA 12/12/24 In Process Every Shift 20:00 Oxygen By Nasal RT 12/12/24 Transmitted Cannula 20:00 Amlodipine Tablet PHA 12/13/24 In Process (Norvasc Tablet) 10:00 Aspirin Tablet PHA 12/13/24 In Process 10:00 Triamterene/Hctz PHA 12/13/24 In Process (Dyazide 37.5/25mg 10:00 Isosorbide PHA 12/13/24 In Process Mononitrate Tablet 10:00 Losartan Tablet PHA 12/13/24 In Process (Cozaar Tablet) 10:00 Metoprolol Tartrate PHA 12/12/24 In Process Tablet (Lopressor Ta 22:00 Atorvastatin (Lipitor) PHA 12/12/24 In Process 22:00 Pantoprazole Tablet PHA 12/13/24 In Process (Protonix Tablet) 06:[address] 12/12/24 Resulted 20:04 Basic Metabolic Panel LAB 12/13/24 Logged 04:00 Glucose Blood PHA 12/12/24 In Process (Accu-Chek Comfort 22:00 Insulin R (Human) PHA 12/12/24 In Process (Insulin R) 22:00 Dextrose 50% Syringe PHA 12/12/24 In Process 20:15 Ondansetron Hcl PHA 12/12/24 In Process (Zofran) 20:15 Cardiac DIET 12/13/24 Transmitted Diet-2gna,Lofat,Lochol Breakfast Condition: Critical DIANA 12/12/24 In Process 20:04 Acetaminophen Tablet PHA 12/12/24 In Process (Tylenol Tablet) 20:15 Bedrest With Bathroom DIANA 12/12/24 In Process Privileg 20:04 Enoxaparin Sodium PHA 12/13/24 In Process (Lovenox) 10:00 Pharmacy DIANA 12/12/24 In Process Clarification: 20:29 Date of Service: Dec 12, 2024 Billing Provider: MIKALA JEAN Common Visit Codes: [id number] CARE 30-74 MIN MIKALA JEAN Dec 13, 2024 04:25
[2024-12-13 05:02] LABS: Chloride 104 mmol/L (98-107); Potassium 3.7 mmol/L (3.5-5.1); Sodium 140 mmol/L (136-145)
[2024-12-13 05:03] LABS: Anion Gap 8 (5-15); Calcium 10.1 mg/dL (8.7-10.4); Carbon Dioxide 28 mmol/L (20-31)
[2024-12-13 05:08] LABS: BUN/Creatinine Ratio 13.6 (10.0-20.0); Blood Urea Nitrogen 18 mg/dL (9-23); Glucose 98 mg/dL (74-106)
[2024-12-13] MEDS: PANTOPRAZOLE 40 MG TAB PO SCH (06:39)
[2024-12-13 08:00] LABS: Basophils # (auto) 0.1 10 ^3/uL (0-0.2); Basophils % (auto) 0.9 % (0.0-2.0); Eosinophils # (auto) 0.1 10 ^3/uL (0-0.8); Eosinophils % (auto) 1.5 % (0.0-7.0); Hematocrit 41.6 % (36.0-46.0); Hemoglobin 13.7 g/dL (12.2-16.2); Lymphocytes # (auto) 2.3 10 ^3/uL (0.4-5.4); Lymphocytes % (auto) 28.5 % (10.0-50.0); Mean Corpuscular Hemoglobin 29.2 pg (28.0-32.0); Mean Corpuscular Volume 88.6 fL (80.0-100.0); Monocytes # (auto) 0.5 10 ^3/uL (0-1.3); Monocytes % (auto) 6.3 % (0.0-12.0); Neutrophils % (auto) 62.8 % (37.0-80.0); Nucleated Red Blood Cells % 0.1 %; Platelet Count (auto) 319 10^3/uL (140-450); Red Cell Distribution Width 16.7 % (11.8-14.3)
[2024-12-13] MEDS: TRIAMTERENE/HCTZ 37.5/25 MG CAP/TAB PO SCH (08:11)
[2024-12-13] MEDS: ISOSORBIDE MONONITRATE ER 60 MG TAB PO SCH (08:11)
[2024-12-13 08:12] LABS: Alkaline Phosphatase 77 U/L (46-116)
[2024-12-13] MEDS: ASPirin 81 mg TAB PO SCH (08:12)
[2024-12-13] MEDS: amLODIPine BESYLATE 5 MG TAB PO SCH (08:12)
[2024-12-13 08:13] LABS: Magnesium 2.3 mg/dL (1.6-2.6); Total Protein 7.1 g/dL (5.7-8.2)
[2024-12-13] MEDS: LOSARTAN POTASSIUM 25 MG TAB PO SCH (08:13)
[2024-12-13] MEDS: ALLOPURINOL 100 MG TAB PO SCH (08:13)
[2024-12-13] MEDS: ENOXAPARIN SOD 40 MG/0.4 ML SYRINGE SC SCH (08:13)
[2024-12-13] MEDS: ONDANSETRON HCL 4 MG/2 ML VIAL IV PRN (08:13)
[2024-12-13 08:14] LABS: Albumin 4.4 g/dL (3.2-4.8); Aspartate Aminotransferase 17 U/L (13-40); Bilirubin, Total 0.5 mg/dL (0.2-1.0)
[2024-12-13 08:15] LABS: Alanine Aminotransferase < 9 U/L (7-40); Cholesterol 246 mg/dL (< 200); HDL Cholesterol 35 mg/dL (40-59); LDL Cholesterol 178 mg/dL (< 100); Triglycerides 162 mg/dL (< 150)
[2024-12-13 08:47] LABS: Folate (Folic Acid) 14.91 ng/mL (>5.38)
--- NOTE | 2024-12-13 11:15 | DVH ---
Carotid Duplex Date: 12/13/2024 10:32 AM Clinical History: dizziness Comparison: None Technique: Duplex Doppler evaluation of the extracranial carotid and vertebral arteries including color Doppler and spectral/pulsed waveform analysis was performed. Findings: Velocities and ratios within normal limits IMPRESSION: No hemodynamically significant stenosis noted in the right carotid system. No hemodynamically significant stenosis noted in the left carotid system. Reference: Radiology 2003; 229:340-346
[2024-12-13 11:17] LABS: Amphetamine Screen, Urine Neg (NEGATIVE); Barbiturate Scree,Urine Neg (NEGATIVE); Benzodiazephine Screen, Urine Neg (NEGATIVE); Cannabinoid Screen, Urine Neg (NEGATIVE); Cocaine Screen, Urine Neg (NEGATIVE); Opiate Scree,Urine Neg (NEGATIVE); Phencyclidine Screen, Urine Neg (NEGATIVE)
--- NOTE | 2024-12-13 13:48 | DVHPNRES ---
Progress Note Date Seen: Dec 13, 2024 Resident Creating Document: ETHEL VITALE RESIDENT Medical Necessity Reason Pt with a Central, PICC or Fol: No Subjective Review of Systems This is a 74-year-old female presents for evaluation of dizziness. Past Medical History: Dyslipidemia, hypertension, diabetes mellitus, CAD, chronic kidney disease Past Surgical History: Left shoulder surgery Family History: Noncontributory SH: Smoke: No. ALCOHOL: none. Drugs: None. Lives: with Family Patient reports developing being weakness and dizziness yesterday and had a near syncopal episode. She states that when she checked her blood pressure initially was in the 180s. She took all her medications for hypertension. She states her repeat blood pressure was in the 200s so she presented for further evaluation. Currently denies chest pain or palpitations. Denies shortness or breath. On my initial assessment, patient was seen and examined at bedside. Currently states feeling better, denies any significant shortness of breath, chest pain, abdominal pain, dysuria, nausea, vomiting, diarrhea, constipation, lightheadedness. Currently tolerating diet. Patient is currently off nicardipine drip. Blood pressure is stable around 120s over 80s. Patient states having dizziness episodes mostly when changing positions. She currently states feeling better than on admission. Patient does state that she had a syncope event, she stated that she was sitting on the bed talking to his daughter when suddenly she lost consciousness and fell back into the bed, she does not know how many minutes she was unconscious. She stated that when she woke up she felt severe weakness, daughter called 911 and they brought her to the hospital. Objective vital signs Vital Sign Date Time Temp Pulse Resp B/P (MAP) Pulse Ox O2 Delivery O2 Flow Rate FiO2 12/13/24 12:00 79 13 114/67 (83) 98 12/13/24 10:03 Room Air* 0 21 21 12/13/24 10:00 97.9 97.9 Total Intake and Output 12/12/24 12/12/24 12/13/24 15:00 23:00 07:00 Intake Total 212.5 ml 25 ml Balance 212.5 ml 25 ml medications Current Medications Medications Dose Ordered Sig/Eboni Route Start Time Stop Time Status Last Admin Dose Admin Nicardipine HCl 250 ml @ 50 mls/hr Q5H IV 12/12/24 16:00 12/12/24 21:10 50 MLS/HR Nitroglycerin 0.4 mg Q5MINP PRN SL 12/12/24 20:00 Morphine Sulfate 2 mg Q30M PRN IV 12/12/24 20:00 Amlodipine Besylate 5 mg DAILY PO 12/13/24 10:00 12/13/24 08:12 5 MG Aspirin 81 mg DAILY PO 12/13/24 10:00 12/13/24 08:12 81 MG Triamterene/HCTZ 1 cap DAILY PO 12/13/24 10:00 12/13/24 08:11 1 CAP Isosorbide Mononitrate 30 mg DAILY PO 12/13/24 10:00 12/13/24 08:11 30 MG Losartan Potassium 25 mg DAILY PO 12/13/24 10:00 12/13/24 08:13 25 MG Metoprolol Tartrate 50 mg BID PO 12/12/24 22:00 12/13/24 08:11 50 MG Atorvastatin Calcium 40 mg HS PO 12/12/24 22:00 12/12/24 22:44 40 MG Pantoprazole Sodium 40 mg DAILY@0600 PO 12/13/24 06:00 12/13/24 06:39 40 MG Diagnostic Test (Pha) 1 strip ACHS 12/12/24 22:00 12/13/24 11:38 1 STRIP Insulin Human Regular ACHS SC 12/12/24 22:00 Dextrose 50 ml UD PRN IV 12/12/24 20:15 Ondansetron HCl 4 mg Q4HP PRN IV 12/12/24 20:15 12/13/24 08:13 4 MG Enoxaparin Sodium 40 mg DAILY SC 12/13/24 10:00 12/13/24 08:13 40 MG Acetaminophen 650 mg Q6HP PRN PO 12/12/24 20:15 12/13/24 11:29 650 MG Allopurinol 100 mg DAILY PO 12/13/24 10:00 12/13/24 08:13 100 MG Examination Physical examination as below: General: Awake, alert, comfortable appearing, in no acute distress. HEENT: Head is normocephalic and atraumatic. Pupils are equal, round, and reactive to light. Extraocular muscles are intact. No nasal discharge. No facial trauma. Intraoral exam shows moist mucous membranes with no tonsillar enlargement or exudate. Neck: Supple with no cervical lymphadenopathy. Heart: Regular rate without murmur, rub, or gallop. Lungs: Equal breath sounds bilaterally with no wheezing, rales, or rhonchi. There is no chest wall tenderness or instability. Abdomen: No external sign of injury. Bowel sounds are present. Abdomen is soft, nontender. No rebound, no guarding, no rigidity. There are no palpable masses. There is no flank pain on exam. Extremities: Strong peripheral pulses. There is no clubbing, no cyanosis, and no edema. Skin: No rash. Neurologic: Cranial nerves II-XII intact without motor, sensory, or cerebellar deficit, no asterixis. HEENTS examinations shows likely peripheral vertigo laboratory and microbiology Laboratory Tests 12/13/24 04:00 Test 12/13/24 04:00 Range/Units Serum Glucose 98 74-106 mg/dL Labs and/or images reviewed: Labs reviewed by me, Image(s) reviewed by me Problem List/Assessment/Plan Problem List/Assessment/Plan Hypertensive urgency Syncope, rule out cardiogenic or neurologic origin, likely vasovagal Dizziness, likely peripheral vertigo, rule out TIA/stroke CKD stage III Diabetes mellitus Peripheral neuropathy Mixed dyslipidemia Obesity CAD status post PCIx1 in 2014 Gout Plan: Head CT unremarkable, order brain MRI Order carotid Doppler, came back unremarkable Pending echocardiogram Continue blood pressure medications: Amlodipine 5 mg p.o. q.d. Isosorbide mononitrate 30 mg p.o. q.d. Losartan 25 mg p.o. q.d. Hydrochlorothiazide/triamterene Discontinue nicardipine drip Downgrade to telemetry Continue Lipitor and aspirin Continue SSI mild a.c. HS Continue aspirin Continue Lipitor DVT prophylaxis with Lovenox Goals of care were discussed for over 30 minutes. FULL CODE. Case was discussed with Dr. Leavitt Plan discussed with: Patient, Other My Orders My Orders Orders - ETHEL VITALE RESIDENT Procedure Category Date Status Time Carotid Duplx W Color US 12/13/24 Resulted DOP 07:36 Orthostatic Vital ORDERS 12/13/24 Transmitted Signs 07:36 Orthostatic Vital ED NURSING 12/13/24 Transmitted Signs Echo 2d Mode Cardiac US 12/13/24 Logged DOP 07:36 Transfer Orders XFER 12/13/24 Transmitted 09:19 Brain Head Wo Contrast MRI 12/13/24 Logged 12:53 Complete Blood Count LAB 12/14/24 Verified 04:00 Basic Metabolic Panel LAB 12/14/24 Verified 04:00 Date of Service: Dec 13, 2024 Billing Provider: YAMILE LEAVITT MD Common Visit Codes: [id number] INP/OBS CARE(HIGH) ETHEL VITALE RESIDENT Dec 13, 2024 13:48 YAMILE LEAVITT MD Dec 13, 2024 21:04
--- NOTE | 2024-12-13 16:31 | DVH ---
PROCEDURE: MRI BRAIN HEAD WO CONTRAST INDICATION: syncope EXAM DATE: 12/13/2024 03:35 PM COMPARISON: None TECHNIQUE: MRI of the brain without intravenous contrast. FINDINGS: Diffusion weighted images of the brain demonstrate no evidence of acute infarction. There is no evidence of acute intracranial hemorrhage, extra-axial collection, mass effect, midline s hift, herniation or hydrocephalus. The ventricles, sulci and cisterns appear age appropriate. Moderate changes of chronic microvascular ischemic disease. There are no signal abnormalities on the susceptibility weighted sequences. The major vascular flow voids are present. The visualized paranasal sinuses and mastoid air cells are clear. The surrounding soft tissues and o sseous structures are unremarkable. IMPRESSION: 1. No evidence of acute infarction, intracranial hemorrhage, mass effect or hydrocephalus. Moderate c hanges of chronic microvascular ischemic disease. HS:Y
[2024-12-14] VITALS (8 sets, daily range): BP systolic 103–122; BP diastolic 42–83; PULSE 76–99; RESP 16–18; TEMP 97.2–97.8; O2SAT 92–100
[2024-12-14 06:11] LABS: Basophils # (auto) 0.1 10 ^3/uL (0-0.2); Basophils % (auto) 0.7 % (0.0-2.0); Eosinophils # (auto) 0.2 10 ^3/uL (0-0.8); Eosinophils % (auto) 2.1 % (0.0-7.0); Hematocrit 39.1 % (36.0-46.0); Hemoglobin 13.1 g/dL (12.2-16.2); Lymphocytes # (auto) 2.5 10 ^3/uL (0.4-5.4); Lymphocytes % (auto) 30.2 % (10.0-50.0); Mean Corpuscular Hemoglobin 29.4 pg (28.0-32.0); Mean Corpuscular Hgb Conc. 33.5 g/dL (32.0-36.0); Mean Corpuscular Volume 87.9 fL (80.0-100.0); Monocytes # (auto) 0.6 10 ^3/uL (0-1.3); Monocytes % (auto) 7.4 % (0.0-12.0); Neutrophils % (auto) 59.6 % (37.0-80.0); Nucleated Red Blood Cells % 0.2 %; Platelet Count (auto) 299 10^3/uL (140-450); Red Blood Cells 4.45 10^6/uL (4.0-5.20); Red Cell Distribution Width 16.7 % (11.8-14.3); White Blood Cell 8.4 10^3/uL (4.4-10.8)
[2024-12-14 06:23] LABS: Anion Gap 10 (5-15); Carbon Dioxide 27 mmol/L (20-31); Chloride 100 mmol/L (98-107); Potassium 3.7 mmol/L (3.5-5.1); Sodium 137 mmol/L (136-145)
[2024-12-14 06:24] LABS: Calcium 9.9 mg/dL (8.7-10.4)
[2024-12-14 06:29] LABS: BUN/Creatinine Ratio 11.6 (10.0-20.0); Glucose 97 mg/dL (74-106)
[2024-12-14 06:31] LABS: Blood Urea Nitrogen 29 mg/dL (9-23)
[2024-12-14] MEDS: SODIUM CHLORIDE 0.9% 500 ML IV ONE (08:00)
[2024-12-14] MEDS: SODIUM CHLORIDE 0.9% 1,000 ML IV ONE (10:15)
--- NOTE | 2024-12-14 10:27 | DVHPNRES ---
Progress Note Date Seen: Dec 14, 2024 Resident Creating Document: ETHEL VITALE RESIDENT Medical Necessity Reason Pt with a Central, PICC or Fol: No Subjective Review of Systems On my assessment, patient was seen and examined at bedside. Currently states feeling well, denies any significant shortness of breath, chest pain, abdominal pain, dysuria, nausea, vomiting, diarrhea, constipation, dizziness, lightheadedness. Currently tolerating diet. Transfer summary: This is a 74-year-old female presents for evaluation of dizziness. Past Medical History: Dyslipidemia, hypertension, diabetes mellitus, CAD, chronic kidney disease Past Surgical History: Left shoulder surgery Family History: Noncontributory SH: Smoke: No. ALCOHOL: none. Drugs: None. Lives: with Family Patient reports developing being weakness and dizziness yesterday and had a near syncopal episode. She states that when she checked her blood pressure initially was in the 180s. She took all her medications for hypertension. She states her repeat blood pressure was in the 200s so she presented for further evaluation. Currently denies chest pain or palpitations. Denies shortness or breath. On my initial assessment, patient was seen and examined at bedside. Currently states feeling better, denies any significant shortness of breath, chest pain, abdominal pain, dysuria, nausea, vomiting, diarrhea, constipation, lightheadedness. Currently tolerating diet. Patient is currently off nicardipine drip. Blood pressure is stable around 120s over 80s. Patient states having dizziness episodes mostly when changing positions. She currently states feeling better than on admission. Patient does state that she had a syncope event, she stated that she was sitting on the bed talking to his daughter when suddenly she lost consciousness and fell back into the bed, she does not know how many minutes she was unconscious. She stated that when she woke up she felt severe weakness, daughter called 911 and they brought her to the hospital. Patient has had improvement on her dizziness since hospitalization, blood pressure also came down however it was retracted quite rapidly, patient developed an DEJON, she was started on IV fluids, we held the blood pressure medications. Patient will not workup for peripheral vertigo, brain MRI was unremarkable, carotid was unremarkable, patient states feeling better she was tolerating diet, sitting up in chair. Pending improvement of kidney function. Objective vital signs Vital Sign Date Time Temp Pulse Resp B/P (MAP) Pulse Ox O2 Delivery O2 Flow Rate FiO2 12/14/24 09:00 97.6 93 17 112/83 (93) 92 97.6 12/14/24 08:00 Room Air* 0 21 Total Intake and Output 12/13/24 12/13/24 12/14/24 15:00 23:00 07:00 Intake Total 0 ml 480 ml Balance 0 ml 480 ml medications Current Medications Medications Dose Ordered Sig/Eboni Route Start Time Stop Time Status Last Admin Dose Admin Nitroglycerin 0.4 mg Q5MINP PRN SL 12/12/24 20:00 Morphine Sulfate 2 mg Q30M PRN IV 12/12/24 20:00 Amlodipine Besylate 5 mg DAILY PO 12/13/24 10:00 12/13/24 08:12 5 MG Aspirin 81 mg DAILY PO 12/13/24 10:00 12/14/24 10:02 81 MG Isosorbide Mononitrate 30 mg DAILY PO 12/13/24 10:00 Hold 12/13/24 08:11 30 MG Metoprolol Tartrate 50 mg BID PO 12/12/24 22:00 12/13/24 08:11 50 MG Pantoprazole Sodium 40 mg DAILY@0600 PO 12/13/24 06:00 12/14/24 05:15 40 MG Diagnostic Test (Pha) 1 strip ACHS 12/12/24 22:00 12/14/24 05:16 1 STRIP Insulin Human Regular ACHS SC 12/12/24 22:00 Dextrose 50 ml UD PRN IV 12/12/24 20:15 Ondansetron HCl 4 mg Q4HP PRN IV 12/12/24 20:15 12/13/24 08:13 4 MG Enoxaparin Sodium 40 mg DAILY SC 12/13/24 10:00 12/14/24 10:03 40 MG Acetaminophen 650 mg Q6HP PRN PO 12/12/24 20:15 12/14/24 00:21 650 MG Allopurinol 100 mg DAILY PO 12/13/24 10:00 12/14/24 10:02 100 MG Examination Physical examination as below: General: Awake, alert, comfortable appearing, in no acute distress. HEENT: Head is normocephalic and atraumatic. Pupils are equal, round, and reactive to light. Extraocular muscles are intact. No nasal discharge. No facial trauma. Intraoral exam shows moist mucous membranes with no tonsillar enlargement or exudate. Neck: Supple with no cervical lymphadenopathy. Heart: Regular rate without murmur, rub, or gallop. Lungs: Equal breath sounds bilaterally with no wheezing, rales, or rhonchi. There is no chest wall tenderness or instability. Abdomen: No external sign of injury. Bowel sounds are present. Abdomen is soft, nontender. No rebound, no guarding, no rigidity. There are no palpable masses. There is no flank pain on exam. Extremities: Strong peripheral pulses. There is no clubbing, no cyanosis, and no edema. Skin: No rash. Neurologic: Cranial nerves II-XII intact without motor, sensory, or cerebellar deficit, no asterixis. HEENTS examinations shows likely peripheral vertigo laboratory and microbiology Laboratory Tests 12/14/24 05:09 Test 12/14/24 05:09 Range/Units Serum Glucose 97 74-106 mg/dL Labs and/or images reviewed: Labs reviewed by me, Image(s) reviewed by me Problem List/Assessment/Plan Problem List/Assessment/Plan Hypertensive urgency DEJON due to VMN, likely hemodynamically mediated Syncope, rule out cardiogenic or neurologic origin, likely vasovagal Dizziness, likely peripheral vertigo, rule out TIA/stroke CKD stage III Diabetes mellitus Peripheral neuropathy Mixed dyslipidemia Obesity CAD status post PCIx1 in 2014 Gout Plan: Administer 500 mL of NS bolus and continue 125 mL/hour 1 L of NS Head CT unremarkable, order brain MRI came back unremarkable, only showing moderate chronic changes Order carotid Doppler, came back unremarkable Pending echocardiogram Amlodipine 5 mg p.o. q.d. Metoprolol 50mg po bid Hold Isosorbide mononitrate 30 mg p.o. q.d. Hold Losartan 25 mg p.o. q.d. Hold Hydrochlorothiazide/triamterene Continue telemetry Continue Lipitor and aspirin Continue SSI mild a.c. HS Continue aspirin Continue Lipitor DVT prophylaxis with Lovenox Goals of care were discussed for over 30 minutes. FULL CODE. Case was discussed with Dr. Leavitt Plan discussed with: Patient, Other (RN) My Orders My Orders Orders - ETHEL VITALE RESIDENT Procedure Category Date Status Time Brain Head Wo Contrast MRI 12/13/24 Resulted 12:53 Sodium Chloride 0.9% PHA 12/14/24 In Process 10:15 Date of Service: Dec 14, 2024 Billing Provider: YAMILE LEAVITT MD Common Visit Codes: [id number] INP/OBS CARE(HIGH) ETHEL VITALE RESIDENT Dec 14, 2024 10:27 YAMILE LEAVITT MD Dec 14, 2024 23:02
--- NOTE | 2024-12-14 15:43 | DVHSR ---
APPROVED REPORT EXAM: LIMITED Two-dimensional and M-mode echocardiogram with Doppler and color Doppler. Blood Pressure: 108/60 mmHg INDICATION Chest Pain RISK FACTORS Obesity: Height: 5' 3", Weight: 205 DIMENSIONS LVDd3.8 (3.8-5.7cm)LA (2D)3.3 (1.9-4.0cm)Aortic Root (2.0-3.7cm) LVDs2.7 (2.5-4.0cm)LA (MM) (1.9-4.0cm)Aortic Cusp Exc (1.5-2.0cm) EF (%) 55.0 (55-70%)Rt. Atrium3.7 (1.9-4.0cm)Asc. Aorta cm IVSd0.8 (0.7-1.1cm)RV (D) (1.8-2.4cm) PWd1.0 (0.7-1.1cm) Mitral Valve MitralMitral Stenosis E wave0.90m/sMV Mean GR.3mmHg A wave1.20m/sMV Peak GR.6mmHg E/A ratio0.82D MVAcm2 DECEL [id number] 1/2 [id number] IVRTmsDop MVA2.58cm2 Aortic Valve Aortic ValveAortic Stenosis V11.40m/[place] Mean GR.7mmHg V21.70m/[place] Peak GR.12mmHg LVOT Diameter2.1 (1.8-2.4cm)Doppler AVA2.85cm2 Other Information Quality : Technically LimitedRhythm : Technically limited study due to body habitus, patient can not move due to back pain. Conclusion Technically good study. Difficult acoustic windows. Concentric LVH. Moderate septal and anterior wall hypertrophy. Left atrial enlargement. Moderate mitral annular calcification. Significant diminution in excursion of the leaflets. This is consistent with mitral stenosis. The tricuspid and pulmonic or structurally normal. The aortic jose ears to be normal. Can not rule out mitral annular prosthesis. Left ventricular function is preserved at 60% with normal right ventricular performance. Doppler reveals a pressure half-time of85 milliseconds across the mitral valve yielding a valve area of 2.58 Cm2. Mild mitral sclerosis/stenosis. No pericardial effusion masses or vegetations.
[2024-12-15] VITALS (8 sets, daily range): BP systolic 104–142; BP diastolic 42–68; PULSE 10–89; RESP 15–18; TEMP 97–98.5; O2SAT 95–100
[2024-12-15 06:09] LABS: Chloride 102 mmol/L (98-107); Potassium 3.7 mmol/L (3.5-5.1); Sodium 139 mmol/L (136-145)
[2024-12-15 06:10] LABS: Anion Gap 9 (5-15); Calcium 9.8 mg/dL (8.7-10.4); Carbon Dioxide 28 mmol/L (20-31)
[2024-12-15 06:15] LABS: BUN/Creatinine Ratio 18.2 (10.0-20.0); Blood Urea Nitrogen 36 mg/dL (9-23); Glucose 100 mg/dL (74-106)
[2024-12-15] MEDS: ENOXAPARIN SOD 30 MG/0.3 ML SYRINGE SC SCH (09:53)
[2024-12-15] MEDS: SODIUM CHLORIDE 0.9% 500 ML IV ONE (10:38)
[2024-12-15] MEDS: POLYETHYLENE GLYCOL 17 GM PWDR PO SCH (14:15)
--- NOTE | 2024-12-15 14:20 | DVHPNRES ---
Progress Note Date Seen: Dec 15, 2024 Resident Creating Document: SAVANNA BURRIS RESIDENT Has the PT tested + for MRSA If YES, has PT been informed?: No Medical Necessity Reason Pt with a Central, PICC or Fol: No Subjective Review of Systems Patient seen and examined at bedside. The patient reports feeling well overall. The patient reports lower back pain that has been chronic and ongoing on for years which is associated with the need of using a walker to walk due to spinal stenosis. Patient states that aside from that, the patient has not had any dizziness or any near syncopal event while trying to walk around. Kidney function with creatinine and BUN has been improving but still not at baseline. We gave 500 cc bolus of IV fluids and we will recheck kidney function tomorrow a.m.. If kidney function keeps improving we could discharge the patient tomorrow. We will also start the patient on laxatives since the patient reports mild to moderate constipation. So far chest x-ray is unremarkable, head CT and brain MRI are both unremarkable and carotid Doppler ultrasound showed both right and left normal patent arteries with no stenosis. Syncopal event could have been vasovagal in nature. ROS Constitutional: Denies weight loss, fever and chills. HEENT: Denies changes in vision and hearing. Respiratory: Denies shortness of breath and cough Cardiovascular: Denies chest discomfort or palpitations GI: Denies abdominal pain, nausea, vomiting and diarrhea. : Denies dysuria and urinary frequency. Musculoskeletal: Denies myalgias and joint pain Skin: Denies rash and pruritus. Neurological: Denies dizziness, headache, vision or hearing problems Objective vital signs Vital Sign Date Time Temp Pulse Resp B/P (MAP) Pulse Ox O2 Delivery O2 Flow Rate FiO2 12/15/24 10:52 61 132/70 12/15/24 09:00 98.3 15 99 98.3 12/15/24 08:00 Nasal Cannula* 2 28 Total Intake and Output 12/14/24 12/14/24 12/15/24 15:00 23:00 07:00 Intake Total 1800 ml 960 ml Output Total 700 ml Balance 1800 ml 260 ml medications Current Medications Medications Dose Ordered Sig/Eboni Route Start Time Stop Time Status Last Admin Dose Admin Nitroglycerin 0.4 mg Q5MINP PRN SL 12/12/24 20:00 Morphine Sulfate 2 mg Q30M PRN IV 12/12/24 20:00 Amlodipine Besylate 5 mg DAILY PO 12/13/24 10:00 12/15/24 09:53 5 MG Aspirin 81 mg DAILY PO 12/13/24 10:00 12/15/24 09:51 81 MG Isosorbide Mononitrate 30 mg DAILY PO 12/13/24 10:00 Hold 12/13/24 08:11 30 MG Metoprolol Tartrate 50 mg BID PO 12/12/24 22:00 12/15/24 09:52 50 MG Pantoprazole Sodium 40 mg DAILY@0600 PO 12/13/24 06:00 12/15/24 05:33 40 MG Diagnostic Test (Pha) 1 strip ACHS 12/12/24 22:00 12/15/24 11:13 1 STRIP Insulin Human Regular ACHS SC 12/12/24 22:00 Dextrose 50 ml UD PRN IV 12/12/24 20:15 Ondansetron HCl 4 mg Q4HP PRN IV 12/12/24 20:15 12/15/24 13:28 4 MG Acetaminophen 650 mg Q6HP PRN PO 12/12/24 20:15 12/15/24 01:10 650 MG Allopurinol 100 mg DAILY PO 12/13/24 10:00 12/15/24 09:51 100 MG Enoxaparin Sodium 30 mg DAILY SC 12/15/24 10:00 12/15/24 09:53 30 MG Examination Physical Examination General: Patient alert and oriented in person, place and time. Patient following commands. HEENT: Normocephalic, atraumatic, moist mucous membranes Respiratory/pulmonary: Clear lungs bilaterally, vesicular murmurs present in almost all lung ovalle, no associated crackles or wheezes. Cardiovascular: Normal heart sounds S1 and S2 with no associated murmurs Abdomen: Abdomen nondistended, there is no pain to palpation in any of the abdominal quadrants, no palpable masses. Extremities: There is no peripheral edema present at the lower extremities. Peripheral Pulses: 3+ Radial (R). 3+ Radial (L). 3+ Dorsalis pedis (R). 3+ Dorsalis pedis(L) Skin: No rashes or pruritus, there is no sacral edema present at this time. Neurological: Intact cranial nerves with no focal neurologic deficits laboratory and microbiology Laboratory Tests 12/15/24 05:20 12/14/24 05:09 Test 12/15/24 05:20 Range/Units Serum Glucose 100 74-106 mg/dL Problem List/Assessment/Plan Problem List/Assessment/Plan Assessment/Plan Hypertensive urgency -initially patient was having elevated systolic blood pressure at home over 200s. Patient was started on nicardipine drip on admission, currently transitioned to oral medications -continue amlodipine 5 mg daily -continue metoprolol tartrate 50 mg b.i.d. -blood pressure has been well controlled at this time DEJON due to hypertensive urgency/hemodynamically mediated -creatinine is currently 1.98 and BUN 36. Slightly improving -500 cc of IV fluids 0.9% of NS was given today -we will monitor kidney function tomorrow Possible vasovagal syncope Ruled out cardiogenic and neurologic syncope Ruled out stroke or TIA -echocardiogram showed an LVEF of 60% with mild mitral stenosis -carotid Doppler ultrasound show both right and left carotid arteries patent with no stenosis -CT scan of the head and brain MRI were both unremarkable -no dizziness at this time -patient is currently walking around with walker due to chronic lumbar spine stenosis and degenerative disc -patient never had any neurologic deficits neither motor or sensory. CKD stage IIIB -currently/transiently stage IV due to DEJON. GFR of 26 -we will monitor kidney function closely Dyslipidemia -lipid panel came back elevated -start atorvastatin 40 Obesity grade I -BMI 32.8 -counseled on diet and lifestyle modifications History of coronary artery disease status post PCI X one in 2014 -continue aspirin 81 mg daily -start atorvastatin 40 mg daily -preserve blood pressure normal range Gout on remission -stable on allopurinol 100 mg daily History of degenerative disc and chronic lumbar pain -patient has an upcoming appointment with pain management as an outpatient Goals of care discussed with the patient at bedside for > 25min, FULL CODE Plan discussed with Dr. Leavitt Plan discussed with: Patient My Orders My Orders Orders - SAVANNA BURRIS Procedure Category Date Status Time Polyethylene Glycol PHA 12/15/24 Verified 17g Powder (Miralax 14:15 Dietary Evaluation Review Recommendations by RD: Dietary education by RD Comments: 1) Encourage optimal PO intake; if < 50%, consider Glucerna bid 2) Continue Zofran and other antiemetics PRN 3) Refer to outpatient RD for weight management and heart healthy diet. Emphasize the importance of limiting intake of saturated fat and choosng lean sources of protein. Encourage patient to limit her sodium intake by choosing salt-free seasonings such as garlic powder, onion powder, thyme, oregano, basil, etc. Explore Mrs. WICK or Jagdish's seasonings. 4) Follow-up with nephrology and cardiology 5) Continue to monitor I&O, labs, and skin integrity Expected Outcomes/Goals: 1) appetite and labs to improve 2) GI symptoms to resolve 2) f/u in 3-5 days Date of Service: Dec 15, 2024 Billing Provider: YAMILE LEAVITT MD Common Visit Codes: [id number] INP/OBS CARE(HIGH) SAVANNA BURRIS RESIDENT Dec 15, 2024 14:20 YAMILE LEAVITT MD Dec 15, 2024 22:53
[2024-12-15] MEDS: ATORVASTATIN 20 MG TAB PO SCH (21:53)
[2024-12-16 01:00] VITALS: BP 116/56; PULSE 78; RESP 16; TEMP 97.8; O2SAT 100
[2024-12-16 05:00] VITALS: BP 132/73; PULSE 80; RESP 16; TEMP 97.6; O2SAT 100
[2024-12-16 06:57] LABS: Basophils # (auto) 0.1 10 ^3/uL (0-0.2); Eosinophils # (auto) 0.2 10 ^3/uL (0-0.8); Hematocrit 37.8 % (36.0-46.0); Hemoglobin 13.1 g/dL (12.2-16.2); Lymphocytes # (auto) 2.3 10 ^3/uL (0.4-5.4); Lymphocytes % (auto) 31.8 % (10.0-50.0); Mean Corpuscular Hemoglobin 30.1 pg (28.0-32.0); Mean Corpuscular Hgb Conc. 34.5 g/dL (32.0-36.0); Mean Corpuscular Volume 87.2 fL (80.0-100.0); Monocytes # (auto) 0.6 10 ^3/uL (0-1.3); Monocytes % (auto) 8.7 % (0.0-12.0); Neutrophils % (auto) 55.5 % (37.0-80.0); Nucleated Red Blood Cells % 0.1 %; Platelet Count (auto) 296 10^3/uL (140-450); Red Blood Cells 4.34 10^6/uL (4.0-5.20); Red Cell Distribution Width 16.8 % (11.8-14.3); White Blood Cell 7.2 10^3/uL (4.4-10.8)
[2024-12-16 07:11] LABS: Albumin 4.2 g/dL (3.2-4.8); Alkaline Phosphatase 69 U/L (46-116); Anion Gap 11 (5-15); BUN/Creatinine Ratio 19.7 (10.0-20.0); Bilirubin, Total 0.5 mg/dL (0.2-1.0); Calcium 9.8 mg/dL (8.7-10.4); Carbon Dioxide 27 mmol/L (20-31); Chloride 103 mmol/L (98-107); Glucose 81 mg/dL (74-106); Potassium 3.7 mmol/L (3.5-5.1); Sodium 141 mmol/L (136-145); Total Protein 6.8 g/dL (5.7-8.2)
[2024-12-16 07:20] LABS: Alanine Aminotransferase < 9 U/L (7-40); Aspartate Aminotransferase 12 U/L (13-40); Blood Urea Nitrogen 28 mg/dL (9-23)
[2024-12-16 08:00] VITALS: PULSE 80; PULSE 86; RESP 16; O2SAT 99
[2024-12-16 09:00] VITALS: BP 135/77; PULSE 86; RESP 18; TEMP 97.8; O2SAT 99
[2024-12-16] MEDS ORDERED: LOSA-534 PO (10:50)
--- NOTE | 2024-12-16 10:57 | DVHDSRES ---
Discharge Summary Date of Admission Resident Creating Document: SAVANNA BURRIS RESIDENT Dec 12, 2024 at 20:00 Date of Discharge: Dec 16, 2024 Admitting Diagnosis Hypertensive urgency with possible presyncopal event Wounds: No wounds present at this time. Labs/Diagnostic Data: Laboratory Results Test 12/16/24 05:34 12/16/24 05:32 12/13/24 07:48 12/13/24 04:00 White Blood Count 7.2 10^3/uL (4.4-10.8) Red Blood Count 4.34 10^6/uL (4.0-5.20) Hemoglobin 13.1 g/dL (12.2-16.2) Hematocrit 37.8 % (36.0-46.0) Mean Corpuscular Volume 87.2 fL (80.0-100.0) Mean Corpuscular Hemoglobin 30.1 pg (28.0-32.0) Mean Corpuscular Hemoglobin Concent 34.5 g/dL (32.0-36.0) Red Cell Distribution Width 16.8 % (11.8-14.3) Platelet Count 296 10^3/uL (140-450) Mean Platelet Volume 8.5 fL (6.9-10.8) Neutrophils (%) (Auto) 55.5 % (37.0-80.0) Lymphocytes (%) (Auto) 31.8 % (10.0-50.0) Monocytes (%) (Auto) 8.7 % (0.0-12.0) Eosinophils (%) (Auto) 3.0 % (0.0-7.0) Basophils (%) (Auto) 1.0 % (0.0-2.0) Neutrophils # (Auto) 4.0 10 ^3/uL (1.6-8.6) Lymphocytes # (Auto) 2.3 10 ^3/uL (0.4-5.4) Monocytes # (Auto) 0.6 10 ^3/uL (0-1.3) Eosinophils # (Auto) 0.2 10 ^3/uL (0-0.8) Basophils # (Auto) 0.1 10 ^3/uL (0-0.2) Nucleated Red Blood Cells 0.1 % Sodium Level 141 mmol/L (136-145) Potassium Level 3.7 mmol/L (3.5-5.1) Chloride Level 103 mmol/L (98-107) Carbon Dioxide Level 27 mmol/L (20-31) Anion Gap 11 (5-15) Blood Urea Nitrogen 28 mg/dL (9-23) Creatinine 1.42 mg/dL (0.550-1.02) Glomerular Filtration Rate Calc 39 mL/min (>90) BUN/Creatinine Ratio 19.7 (10.0-20.0) Serum Glucose 81 mg/dL (74-106) Calcium Level 9.8 mg/dL (8.7-10.4) Total Bilirubin 0.5 mg/dL (0.2-1.0) Aspartate Amino Transferase (AST) 12 U/L (13-40) Alanine Aminotransferase (ALT) < 9 U/L (7-40) Alkaline Phosphatase 69 U/L (46-116) Total Protein 6.8 g/dL (5.7-8.2) Albumin 4.2 g/dL (3.2-4.8) POC Glucose 88 mg/dl (70-106) Cortisol AM Sample 7.10 ug/dL (5.27-22.45) Magnesium Level 2.3 mg/dL (1.6-2.6) Triglycerides Level 162 mg/dL (< 150) Cholesterol Level 246 mg/dL (< 200) LDL Cholesterol 178 mg/dL (< 100) HDL Cholesterol 35 mg/dL (40-59) Vitamin B12 Level 722 pg/mL (211-911) Folic Acid 14.91 ng/mL (>5.38) Test 12/12/24 18:52 12/12/24 17:50 12/12/24 16:03 Troponin I High Sensitivity 3 ng/L (</=34) Urine Color Colorless (Yellow) Urine Clarity Clear (Clear) Urine pH 7.0 (5.0-9.0) Urine Specific [place] 1.007 (1.001-1.035) Urine Protein Negative (Negative) Urine Ketones Negative (Negative) Urine Blood Negative /uL (Negative) Urine Nitrite Negative (Negative) Urine Bilirubin Negative (Negative) Urine Urobilinogen Normal mg/dL (Negative) Urine Leukocyte Esterase Negative /uL (Negative) Urine RBC 1 /hpf (0 - 4) Urine Microscopic WBC < 1 /HPF (0-5) Urine Squamous Epithelial Cells Few /hpf (<5) Urine Bacteria None seen /hpf (None Seen) Urine Glucose 4+ mg/dL (Normal) Urine Opiates Screen Neg (NEGATIVE) Urine Fentanyl Screen Neg (NEGATIVE) Urine Barbiturates Screen Neg (NEGATIVE) Urine Phencyclidine Screen Neg (NEGATIVE) Urine Amphetamines Screen Neg (NEGATIVE) Urine Benzodiazepines Screen Neg (NEGATIVE) Urine Cocaine Screen Neg (NEGATIVE) Urine Cannabinoids Screen Neg (NEGATIVE) B-Type Natriuretic Peptide 39.70 pg/mL (0-100) Thyroid Stimulating Hormone (TSH) 1.95 uIU/mL (0.55-4.78) Other Laboratory Tests 12/16/24 05:34 Brief Hx & Hospital Course: This is a 74-year-old female with past medical history of hypertension, dyslipidemia, type 2 diabetes mellitus, CAD, CKD who presented to the ED due to developing weakness with near syncopal event. The patient stated that he she checked her blood pressure at home a couple of times and systolic blood pressure was above 200s. The patient presented to the ED for further assessment and evaluation. Upon admission, the patient was placed on nicardipine drip to control blood pressure and was transitioned to oral medications. The patient denied chest pain, shortness of breath, fever/chills or any other associated symptoms at that time. The patient does reported chronic back pain that has been going on for years but patient states that has an upcoming appointment on January 20, 2025 with orthopaedic for evaluation of lumbar spine. The patient was well controlled with the amlodipine 5 mg daily and metoprolol tartrate 50 mg b.i.d.. Patient developed DEJON likely due to hypertensive urgency hemodynamically mediated. Today, patient was evaluated at bedside and creatinine went down to 1.42 which is near her baseline. Patient will be discharged home back on her home medications. We will increase his losartan at home from 25-50 mg daily, continue metoprolol tartrate 50 mg b.i.d. and isosorbide mononitrate 30 mg daily. Encouraged the patient to have a dash diet, exercise as tolerated and lifestyle modifications. Patient agrees and understands the plan. Patient is to follow up with her PCP in one week. ROS Constitutional: Denies weight loss, fever and chills. HEENT: Denies changes in vision and hearing. Respiratory: Denies shortness of breath and cough Cardiovascular: Denies chest discomfort or palpitations GI: Denies abdominal pain, nausea, vomiting and diarrhea. : Denies dysuria and urinary frequency. Musculoskeletal: Denies myalgias and joint pain Skin: Denies rash and pruritus. Neurological: Denies dizziness, headache, vision or hearing problems Physical Examination General: Patient alert and oriented in person, place and time. Patient following commands. HEENT: Normocephalic, atraumatic, moist mucous membranes Respiratory/pulmonary: Clear lungs bilaterally, vesicular murmurs present in almost all lung ovalle, no associated crackles or wheezes. Cardiovascular: Normal heart sounds S1 and S2 with no associated murmurs Abdomen: Abdomen nondistended, there is no pain to palpation in any of the abdominal quadrants, no palpable masses. Extremities: There is no peripheral edema present at the lower extremities. Peripheral Pulses: 3+ Radial (R). 3+ Radial (L). 3+ Dorsalis pedis (R). 3+ Dorsalis pedis(L) Skin: No rashes or pruritus, there is no sacral edema present at this time. Neurological: Intact cranial nerves with no focal neurologic deficits Consults/Reason for consult N/A Operations or Procedures CHEST RADIOGRAPH Indication: CP Technique: Single frontal view of the chest was obtained Comparison: XY CHEST PORTABLE on DOS: 02/22/23 FINDINGS: Lines and Tubes: None Lungs: No focal consolidation. Pleura: No effusion. No pneumothorax. Cardiomediastinal contours: Unremarkable Bones: No acute osseous abnormality. IMPRESSION: 1. No acute cardiopulmonary disease. CT BRAIN WITHOUT CONTRAST HISTORY: Headache/hypertension TECHNIQUE: Axial scans were obtained from the skull base through the vertex without contrast. [place]l and coronal reformats were generated. One or more of the following radiation dose reduction techniques were used for this examination: automated exposure control, adjustment of the mA and/or kV according to patient size, use of iterative reconstruction technique. COMPARISON: None available FINDINGS: No acute intracranial hemorrhage or evidence of large vessel territorial infarction identified at this time. No midline shift. The basilar cisterns are patent. The visualized paranasal sinuses and mastoid air cells are clear. No grossly displaced calvarial abnormalities identified. IMPRESSION: No acute intracranial findings. If symptoms persist, follow-up MRI may be considered to further evaluate. Carotid Duplex Date: 12/13/2024 10:32 AM Clinical History: dizziness Comparison: None Technique: Duplex Doppler evaluation of the extracranial carotid and vertebral arteries including color Doppler and spectral/pulsed waveform analysis was performed. Findings: Velocities and ratios within normal limits IMPRESSION: No hemodynamically significant stenosis noted in the right carotid system. No hemodynamically significant stenosis noted in the left carotid system. PROCEDURE: MRI BRAIN HEAD WO CONTRAST INDICATION: syncope EXAM DATE: 12/13/2024 03:35 PM COMPARISON: None TECHNIQUE: MRI of the brain without intravenous contrast. FINDINGS: Diffusion weighted images of the brain demonstrate no evidence of acute infarction. There is no evidence of acute intracranial hemorrhage, extra-axial collection, mass effect, midline shift, herniation or hydrocephalus. The ventricles, sulci and cisterns appear age appropriate. Moderate changes of chronic microvascular ischemic disease. There are no signal abnormalities on the susceptibility weighted sequences. The major vascular flow voids are present. The visualized paranasal sinuses and mastoid air cells are clear. The surrounding soft tissues and osseous structures are unremarkable. IMPRESSION: 1. No evidence of acute infarction, intracranial hemorrhage, mass effect or hydrocephalus. Moderate changes of chronic microvascular ischemic disease. Condition at Discharge: Stable Final Diagnosis/Problems List Hypertensive urgency DEJON due to hypertensive urgency/hemodynamically mediated Possible vasovagal syncope Ruled out cardiogenic and neurologic syncope Ruled out stroke or TIA CKD stage IIIB Dyslipidemia Obesity grade I History of coronary artery disease status post PCI X one in 2014 Gout on remission History of degenerative disc and chronic lumbar pain Discharge Disposition: Home Discharge Instruct/Medications Diet: Regular Activity: No Restrictions, As Tolerated Follow Up/Referral: F/U with her PCP in 1 week Medications: Continue home medications Isosorbide mononitrate 30 mg daily Metoprolol tartrate 50 mg b.i.d. Losartan 50 mg daily Discharge Statement: "Patient was advised to return to the ER or call 911 if any headaches, dizziness, shortness of breath, chest pain, abdominal pain, bleeding, fevers, or worsening of medical condition. Patient was counseled about treatment plan, medications, possible side effects, patientverbalized understanding. All questions were answered to the best of my ability. This discharge took greater then 30 minutes in planning, reviewing documentation, counseling the patient, and discussing with other team members." ASSESSMENT ASSESSMENT Assessment Hypertensive urgency DEJON due to hypertensive urgency/hemodynamically mediated Possible vasovagal syncope Ruled out cardiogenic and neurologic syncope Ruled out stroke or TIA CKD stage IIIB Dyslipidemia Obesity grade I History of coronary artery disease status post PCI X one in 2014 Gout on remission History of degenerative disc and chronic lumbar pain Date of Service: Dec 16, 2024 Billing Provider: PRIMITIVO VELASQUEZ MD Common Visit Codes: 77047-KDI/OBS DISCH DAY >30min SAVANNA BURRIS RESIDENT Dec 16, 2024 10:57 PRIMITIVO VELASQUEZ MD Dec 17, 2024 09:49
[2024-12-16 11:58] VITALS: BP 135/77; PULSE 86; TEMP 36.6
== END 2024-12-16 13:31 | disposition home or self-care (01) | DRG 304 ==
LOC: EDBD 15:37 → ER 15:37 → OVERFLOW 20:00 → TELE-EAST 12-13 15:06
PROVIDERS: ADMIT Internal Medicine; ATTEND Emergency Medicine
DX: I16.0 Hypertensive urgency (principal); N17.0 Acute kidney failure with tubular necrosis; G90.89 Other disorders of autonomic nervous system; E78.5 Hyperlipidemia, unspecified; M51.369 Other intervertebral disc degeneration, lumbar region without mention of lumbar back pain or lower extremity pain; G89.29 Other chronic pain; I25.10 Atherosclerotic heart disease of native coronary artery without angina pectoris; E78.2 Mixed hyperlipidemia; R55 Syncope and collapse; M10.9 Gout, unspecified; I12.9 Hypertensive chronic kidney disease with stage 1 through stage 4 chronic kidney disease, or unspecified chronic kidney disease; E66.9 Obesity, unspecified; E11.42 Type 2 diabetes mellitus with diabetic polyneuropathy; E11.22 Type 2 diabetes mellitus with diabetic chronic kidney disease; N18.32 Chronic kidney disease, stage 3b; Z79.2 Long term (current) use of antibiotics; Z79.1 Long term (current) use of non-steroidal anti-inflammatories (NSAID); Z79.891 Long term (current) use of opiate analgesic; Z79.899 Other long term (current) drug therapy; Z79.82 Long term (current) use of aspirin; Z79.84 Long term (current) use of oral hypoglycemic drugs; Z68.36 Body mass index [BMI] 36.0-36.9, adult
CPT/HCPCS: 36415; 70450; 70551; 71045; 80048; 80053; 80061; 80307; 81001; 82040; 82247; 82533; 82607; 82746; 82962; 83735; 83880; 84075; 84155; 84443; 84450; 84460; 84484; 85025; 93005; 93306; 93886; 96360; 96372; 99291; G0378; J2405

== ENCOUNTER → 2025-01-13 | Outpatient (CLI) | payer BC ==
[~2025-01-13] MED LIST changes: -AML5T PO; -CEPH500C PO; -LOS25T PO; +LOSA-534 PO; -MELO15TA29 PO
[2025-01-13 08:38] LABS: Chloride 106 mmol/L (98-107); Erythrocyte Sedimentation Rate 12 mm/hr (0-20); Potassium 3.5 mmol/L (3.5-5.1); Sodium 143 mmol/L (136-145)
[2025-01-13 08:39] LABS: Anion Gap 10 (5-15); Carbon Dioxide 27 mmol/L (20-31)
[2025-01-13 08:44] LABS: BUN/Creatinine Ratio 15.7 (10.0-20.0); Blood Urea Nitrogen 16 mg/dL (9-23)
[2025-01-13 08:45] LABS: Glucose 108 mg/dL (74-106)
== END | disposition home or self-care (01) ==
LOC: LAB 07:29
PROVIDERS: ATTEND Internal Medicine
DX: N17.9 Acute kidney failure, unspecified (principal); M10.9 Gout, unspecified; F16.10 Hallucinogen abuse, uncomplicated
CPT/HCPCS: 36415; 80048; 85652

== ENCOUNTER 2025-02-18 12:22 | Outpatient (CLI) | payer BC ==
[2025-02-18 13:02] LABS: Anion Gap 11 (5-15); Calcium 10.2 mg/dL (8.7-10.4); Carbon Dioxide 26 mmol/L (20-31)
[2025-02-18 13:06] LABS: Chloride 108 mmol/L (98-107); Potassium 3.1 mmol/L (3.5-5.1); Sodium 145 mmol/L (136-145)
[2025-02-18 13:07] LABS: BUN/Creatinine Ratio 9.1 (10.0-20.0); Blood Urea Nitrogen 9 mg/dL (9-23); Glucose 105 mg/dL (74-106)
== END 2025-02-18 17:00 | disposition home or self-care (01) ==
LOC: LAB 12:22
PROVIDERS: ATTEND Internal Medicine
DX: E11.40 Type 2 diabetes mellitus with diabetic neuropathy, unspecified (principal)
CPT/HCPCS: 36415; 80048; 83036

== ENCOUNTER 2025-02-24 13:16 | Outpatient (CLI) | payer BC ==
[2025-02-24 13:36] LABS: Chloride 104 mmol/L (98-107); Potassium 3.6 mmol/L (3.5-5.1); Sodium 142 mmol/L (136-145)
[2025-02-24 13:37] LABS: Anion Gap 11 (5-15); Carbon Dioxide 27 mmol/L (20-31)
[2025-02-24 13:38] LABS: Calcium 9.6 mg/dL (8.7-10.4)
[2025-02-24 13:42] LABS: BUN/Creatinine Ratio 12.4 (10.0-20.0); Blood Urea Nitrogen 12 mg/dL (9-23)
[2025-02-24 13:51] LABS: Glucose 116 mg/dL (74-106)
== END 2025-02-24 17:00 | disposition home or self-care (01) ==
LOC: LAB 13:16
PROVIDERS: ATTEND Internal Medicine
DX: E87.4 Mixed disorder of acid-base balance (principal)
CPT/HCPCS: 36415; 80048

== ENCOUNTER 2025-03-13 06:10 | Inpatient (IN) | payer BC ==
[2025-02-28 12:38] LABS: Hematocrit 42.1 % (36.0-46.0); Hemoglobin 14.1 g/dL (12.2-16.2); Mean Corpuscular Hemoglobin 28.7 pg (28.0-32.0); Mean Corpuscular Volume 86.0 fL (80.0-100.0); Nucleated Red Blood Cells % 0.0 %
[2025-02-28 12:53] LABS: INR 1.0 (0.9-1.15); Partial Thromboplastin Time 29.8 SEC (24.5-34.5); Prothrombin Time 10.6 sec (9.3-11.8)
[2025-02-28 13:02] LABS: Alanine Aminotransferase < 9 U/L (7-40); Albumin 4.4 g/dL (3.2-4.8); Alkaline Phosphatase 69 U/L (46-116); Anion Gap 10 (5-15); BUN/Creatinine Ratio 15.2 (10.0-20.0); Bilirubin, Total 0.5 mg/dL (0.2-1.0); Blood Urea Nitrogen 12 mg/dL (9-23); Calcium 9.5 mg/dL (8.7-10.4); Carbon Dioxide 25 mmol/L (20-31); Chloride 107 mmol/L (98-107); Glucose 98 mg/dL (74-106); Potassium 3.5 mmol/L (3.5-5.1); Sodium 142 mmol/L (136-145); Total Protein 6.9 g/dL (5.7-8.2)
[2025-03-03 08:50] LABS: Urine Protein, UAD TRACE (Negative)
[2025-03-10 09:47] LABS: Hematocrit 41.7 % (36.0-46.0); Hemoglobin 14.0 g/dL (12.2-16.2); Mean Corpuscular Hemoglobin 28.7 pg (28.0-32.0); Mean Corpuscular Volume 85.4 fL (80.0-100.0); Nucleated Red Blood Cells % 0.0 %
[2025-03-10 09:58] LABS: INR 0.99 (0.9-1.15); Partial Thromboplastin Time 28.2 SEC (24.5-34.5); Prothrombin Time 10.5 sec (9.3-11.8)
[2025-03-10 10:15] LABS: Alanine Aminotransferase 13 U/L (7-40); Albumin 4.3 g/dL (3.2-4.8); Alkaline Phosphatase 74 U/L (46-116); Anion Gap 10 (5-15); BUN/Creatinine Ratio 14.6 (10.0-20.0); Bilirubin, Total 0.5 mg/dL (0.2-1.0); Blood Urea Nitrogen 14 mg/dL (9-23); Calcium 10.0 mg/dL (8.7-10.4); Carbon Dioxide 28 mmol/L (20-31); Chloride 104 mmol/L (98-107); Sodium 142 mmol/L (136-145); Total Protein 6.8 g/dL (5.7-8.2)
[2025-03-10 10:26] LABS: Glucose 116 mg/dL (74-106); Potassium 3.5 mmol/L (3.5-5.1)
[~2025-03-13] VITALS: Ht 160 cm; Wt 97.6 kg
[~2025-03-13 06:10] MED LIST changes: +AMLO1TAB21 PO; -ASPI-498 OR; -GLUC1MIS2; -HYDR1TAB97 PO; +LOSA-533 PO; -LOSA-534 PO; +MELO15TA29 PO; +POTA-215 PO; -ROSU40TA81 PO; -TRIA37.587 PO
[2025-03-13] MEDS ORDERED: LIDOCAINE W/ EPINEPHRINE 1% 20ML VIAL ONE (06:35)
--- NOTE | 2025-03-13 07:28 | DVHHP2 ---
History Allergies: Coded Allergies: NO KNOWN ALLERGIES (Unverified , 05/09/24) Chief Complaint: Lumbar stenosis with neurogenic claudication, patient is here for elective spine surgery with Dr Rajendra Adams, lumbar 3-5 posterior spinal decompression and fusion with peek cage and instrumentation The risks/benefits/alternatives of surgery were explained to the patient in detail including but not limited to , stroke, paralysis, myocardial inf arction, bleeding, infection, complications of anesthesia (dry mouth, sore throat, dental damage, respiratory depression, blindness), postoperative infection, incomplete relief of symptoms, recurrence of symptoms, damage to blood vessels, nerves and tendons, pulmonary embolism and possible need for repeat surgery in the future. Pain, damage to surrounding soft tissue structures, need for reoperation or future surgery, persistent pain/disability/deformity, bone graft collapse or extrusion of interbody device, instrumentation failure, need for instrumentation removal, dural tear, temporary or permanent nerve root damage, deep vein thrombosis, pulmonary embolism, were described to the patient in detail and the patient wishes to proceed. No guarantee of surgical outcome/improvement was implied. All of the questions were answered thoroughly and consents were obtained. Call with negro Orozco [facility] Orthopaedic Spine Surgery nurse practitioner For Dr Marco Adams Patient was examined, chart reviewed, labs evaluated, and diagnostic studies and findings analyzed. Case was discussed with Dr. Rajendra Adams who formulated the plan of care. This medical document was created using an electronic medical record system with [employer] dictation system. Although this document has been carefully reviewed, there might still be some phonetic and typographical errors. These areas are purely typographical due to imperfections of the software programs, and do not reflect any compromise in the patient's medical care. Present Illness(Onset/Duration Patient has had lumbar back pain many years, right leg started 1st and now both legs are affected patient is unable to walk efficiently she needs the assistance of her family or is using a walker or cane. Noncontributory to case Past Surgical History: Other (Bilateral knee surgery, left foot rods, cervical surgery in 2009) Exam Exam General Appearance: Normal, Obese HEENT: Normal ENT Inspection Neck: None, Non-Tender, Normal Respiratory: No Accessory Muscle Use, None, No Respiratory Distress, Other (Patient is speaking full sentences) Cardiovascular: None Gastrointestinal: none Extremities: Normal capillary refill, Normal inspection Neurologic: Motor Weakness, No Motor Deficits Reflexes: Normal Skin: None CHEYANNE OROZCO NP Mar 13, 2025 07:28
[2025-03-13] MEDS ORDERED: MIDAZOLAM HCL 2MG/2ML 2ml VIAL (1mg/ml) ONE (07:29)
[2025-03-13] MEDS ORDERED: HYDROmorphone HCL 2 MG/ML VL/or syr ONE (07:29)
[2025-03-13] MEDS ORDERED: fentaNYL CITRATE 100 MCG/2 ML VL ONE (07:29)
[2025-03-13] MEDS ORDERED: fentaNYL CITRATE 5 ML ONE (07:30)
[2025-03-13] MEDS: ceFAZolin 2 GM/D5W50ml 50 ML IV ONE (07:45)
[2025-03-13] MEDS ORDERED: PROPOFOL 10 MG/ML 20 ML IV ONE (07:58)
[2025-03-13] MEDS: TRANEXAMIC ACID 20 ML ONE (08:30)
--- NOTE | 2025-03-13 08:43 | DVHOP2 ---
Operative Report - 2 Report Details Date: 03/13/25 Preop Diagnosis: lumbar spondylolisthesis/ spinal stenosis with incapacitating back pain and neurogenic claudication Postop Diagnosis: same Surgeon: Rajendra Adams MD Compensation Agent: Katlyn Orozco NP Anesthesiologist: fatmata Anesthesia: General Consent: The patient was informed of the risks and benefits of the procedure. These include but are not limited to complications of anesthesia, postoperative infection, incomplete relief of symptoms, recurrence of symptoms, damage to blood vessels, nerves and tendons, deep venous thrombosis, pulmonary embolism and possible need for repeat surgery in the future. Name of Procedure Performed see detailed note Procedure Details Procedure Details: Pre-op Diagnosis: Lumbar Degenerative Disk Disease and Lumbar Spinal Stenosis with lumbar spondylolisthesis causing Incapacitating back pain, radiculopathy and progressive neurologic deficit Post-op Diagnosis: Lumbar Degenerative Disk Disease and Lumbar Spinal Stenosis with lumbar spondylolisthesis causing Incapacitating back pain, radiculopathy and progressive neurologic deficit Procedure: Lumbar 5 laminectomy with Lumbar 5 foraminotomies and facetectomies to decompress central canal and Lumbar 5 nerve roots Lumbar 4 laminectomy with Lumbar 4 foraminotomies and facetectomies to decompress central canal and Lumbar 4 nerve roots Lumbar 3 laminectomy with Lumbar 3 foraminotomies and facetectomies to decompress central canal and Lumbar 4 nerve roots Lumbar 3 to 5 posterior spinal intertransverse fusion with bone graft Lumbar 4 to 5 posterior spinal interbody fusion with PEEK cage Lumbar 3 to 5 posterior spinal instrumentation with pedicle screws Local Bone Autograft For Fusion Allograft Bone Substitute (Bacterin) to augment Fusion Use of Demineralized Bone Matrix to Augment Fusion Microscope For Microdissection Surgeon: Rajendra Adams MD Assist: EULOGIO Ivan Anesthesia: General Fluids and EBL: See anesthesia note Patient was seen in the Pre Anesthesia Care Unit (PACU) and the operative site was initialed by me. All questions were answered to the patients satisfaction and chart reviewed. The patient was taken to the operative room where pre- operative antibiotics were given 30 minutes prior to incision. General anesthesia was induced and neuro-monitoring leads placed. Cardozo catheter was placed. The patient was turned prone onto the [facility] spinal table. While positioning, I made sure that the belly was free to allow proper expansion of the lungs. The hips were extended and all bony prominences padded. The shoulders were abducted 80 degree and the elbows flexed 100 degrees with no tension on the brachial plexus. I check the foot arterial pulses and they were palpable. The patient was prepped and draped and time out was taken at this time per usual protocol. At this time, the C-arm fluoroscope was brought in and was used to florian the incision borders proximally and distally. Using a Number 10 Blade, an incision was made extending it proximally and distally per C arm florian from the posterior spinous process of lumbar 4,5 down to the lumbo-dorsal fascia. All bleeding was controlled with electrocautery. Self-retaining retractors were placed. Electrocautery was then used to take down the lumbo- dorsal fascia, to free the muscle off the bone bilaterally. A Noemi retractor was placed over the posterior spinous process proximally and a lateral C-arm fluoroscope image was taken to insure we were at the correct level. Next, using bovie electro cautery, The deep fascia laterally to the facet joints was removed to expose the transverse processes of lumbar 3, 4 and 5 while taking care to a void injuring the facet capsule at the proximal end of the incision. Next, the microscope was bought in for visualization and using a Luxell rongeur, the posterior spinous process of lumbar 3 and 4 and 5 bone were removed and the bone was saved for use as local autograft. I used alternating Kerison 2 mm and 3 mm rongeurs to perform central laminectomies lumbar 5 and 4 and 3 to decompress the central canal. Next using alternating Kerison 2mm and 3 mm rongeurs, the superior articular facets of lumbar 3, 4 and 5 were removed bilaterally to decompress the lateral recess (facetectomies) and then extended proximally to decompress the foramen bilaterally (foraminotomies). I used a ball tipped nerve probed to insure that the respective nerve roots were able to be mobilized 5mm in each direction were unimpeded in the lateral recess and foramen. Next I carefully inspected the dura to make sure no durotomy was visible and it was not. I retracted the right lumbar 5 nerve medially and used increasing size jennifer until the proper size prepared and then inserted a [id number] PEEK cage in to the disc space at L4/5 using C arm fluoroscopy. I covered the exposed dura with gelfoam soaked in thrombin and the microscope was wheeled away from the operative filed. The C-arm fluoroscope was brought in and perfect AP views of the lumbar 4 and 5 pedicles were obtained. I placed bilateral pedicle screws at these levels by: using a Lenke awl to make a balloon pilot hole, then a ball tip robe to make sure there was no pedicle breach, then a tap to prepare the track and a 6.5 mm diameter 45 mm length pedicle screw was placed bilaterally. This step to place bilateral pedicle screws was repeated up to the lumbar 3, 4 and 5 level. Next, the c-arm fluoroscope took an AP and lateral x-ray to ensure proper placement of the pedicle screws. Next, the neuro-stimulation probe was placed over the tip of each screw and each screw stimulated only after a current greater than 10 mA was delivered to the screw. Next , I took a Midas Tin Drill to decorticate the transverse process which were exposed and local bone graft, Bacterin allograft bone substitute and Demineralized bone matrix were placed along the inter transverse process intervals bilaterally (the fusion bed). Next a curved wan sized to fit the pedicle screw interval was placed and secured to each pedicle screw using set screws, The set screws were tightened using a torque screwdriver (set to 10 N*M torque) to secure the wan to the pedicle screws bilaterally. Final AP and lateral C arm fluoroscopic films were taken at this time. Next a 10 Georgian diameter Hemovac drain was laced deep to the lumbo- dorsal fascia. The lumbo-dorsal fascia was closed with interrupted 0-Vicry sutures. The subcutaneous tissue was closed with interrupted 2-0 Vicryl sutures. The skin was closed with running 2-0 nylon suture. Sterile dressings were place. The pt. was turned supine onto the stretcher, extubated and taken to the recovery room in stable condition. 41182 (decompression of the L4/5 interbody fusion level) , 23198 (laminectomy of the L3/4 level ), 79248 (intertransverse fusion of L3/4), 00566 (L4/5 interbody fusion), 88452 (2 level instrumentation ), [id number] Condition Stable Disposition Still a Patient RAJENDRA ADAMS MD Mar 13, 2025 08:43
[2025-03-13] MEDS ORDERED: ACETAMINOPHEN 325 MG TAB PO PRN (08:45)
[2025-03-13] MEDS ORDERED: hydrALAZINE HCL 20 MG/ML VL IV PRN (08:45)
[2025-03-13] MEDS ORDERED: NITROGLYCERIN 0.4 MG SL TAB SL PRN (08:45)
[2025-03-13] MEDS ORDERED: MORPHINE SULFATE INJ 2 MG/ml SYRG IV PRN (08:45)
[2025-03-13] MEDS ORDERED: MIDAZOLAM HCL 2MG/2ML 2ml VIAL (1mg/ml) IV PRN (08:45)
[2025-03-13] MEDS ORDERED: MORPHINE SULFATE 4 MG/ML SYR/VIAL IV PRN (08:45)
[2025-03-13] MEDS ORDERED: ONDANSETRON HCL 4 MG/2 ML VIAL IV ONE (08:45)
[2025-03-13] MEDS ORDERED: HYDROmorphone HCL 2 MG/ML VL/or syr IV PRN (08:45)
[2025-03-13] MEDS ORDERED: ONDANSETRON HCL 4 MG/2 ML VIAL IV PRN (08:45)
[2025-03-13] MEDS ORDERED: METOPROLOL SUCCINATE XL 50 MG TAB PO SCH (10:00)
[2025-03-13] MEDS: ISOSORBIDE MONONITRATE ER 60 MG TAB PO SCH (10:00)
[2025-03-13] MEDS: ALLOPURINOL 100 MG TAB PO SCH (10:00)
[2025-03-13] MEDS ORDERED: THROMBIN (BOVINE) 5000 UNIT SOL VIAL ONE (10:40)
[2025-03-13] MEDS ORDERED: GELATIN 1 SPONGE SIZE 100 TOP ONE (10:40)
[2025-03-13] MEDS ORDERED: SUGAMMADEX 200mg/2ml Vial (100MG/ML) IV ONE (11:10)
[2025-03-13 12:05] VITALS: PULSE 100; RESP 16; O2SAT 94
[2025-03-13 14:30] VITALS: BP 135/73; PULSE 93; RESP 17; TEMP 98.4; O2SAT 94
[2025-03-13] MEDS: CYCLOBENZAPRINE HCL 10 MG TAB PO SCH (14:45)
[2025-03-13] MEDS: D5W/SOD CHLO 0.9% 1,000 ML IV SCH (15:00)
[2025-03-13] MEDS: ceFAZolin 1GM/50ML 50 ML IV SCH (15:00)
[2025-03-13 17:00] VITALS: BP 155/89; PULSE 94; RESP 16; TEMP 96; O2SAT 98
[2025-03-13 20:00] VITALS: PULSE 96; PULSE 99; RESP 18; O2SAT 95
--- NOTE | 2025-03-13 20:48 | DVH ---
C-ARM FLUOROSCOPY: PROCEDURE: L3-L5 spinal decompression FLUOROSCOPY TIME: 84 seconds DAP: 62.03 mgy FINDINGS: Spot intraoperative C arm radiographs demonstrating L3-L5 spinal decompression. IMPRESSION: Please refer to surgical report for detailed findings.
[2025-03-13 21:00] VITALS: BP 134/72; PULSE 99; RESP 18; TEMP 97.8; O2SAT 95
[2025-03-13] MEDS: DOCUSATE SOD 100 MG CAP PO SCH (21:17)
[2025-03-13] MEDS: PANTOPRAZOLE 40 MG TAB PO SCH (21:18)
[2025-03-13] MEDS: HYDROcodone-ACET 10/325MG TAB PO PRN (23:12)
[2025-03-14] VITALS (9 sets, daily range): BP systolic 114–134; BP diastolic 61–72; PULSE 83–97; RESP 17–20; TEMP 97.6–98.2; O2SAT 94–99
[2025-03-14] MEDS: TIMOLOL MAL 0.5% OPTH(EYE) SOL 5ML EACHEYE SCH (06:05)
[2025-03-14] MEDS: MORPHINE SULFATE INJ 2 MG/ml SYRG IV PRN (08:13)
--- NOTE | 2025-03-14 09:43 | DVHPN2 ---
Progress Note - Surgical Date Seen: Mar 14, 2025 Post op day Post op day: 1 Subjective Patient reports: No new complaints, Feels better Review of Systems: HEENT:Normal, CVS:Normal, RESPIRATORY:Normal, GI:Normal, :Normal, MSK:Normal, NEURO:Abnormal (lbp) Objective Vital signs Vital Sign Date Time Temp Pulse Resp B/P (MAP) Pulse Ox O2 Delivery O2 Flow Rate FiO2 03/14/25 08:13 85 17 152/82 03/14/25 05:00 97.6 98 97.6 03/13/25 20:00 Room Air* 0 21 Total Intake and Output 03/13/25 03/13/25 03/14/25 15:00 23:00 07:00 Intake Total 340 ml 1850 ml Output Total 2 ml Balance -2 ml 340 ml 1850 ml Medications Current Medications Medications Dose Ordered Sig/Eboni Route Start Time Stop Time Status Last Admin Dose Admin Dextrose/Sodium Chloride 1,000 ml @ 100 mls/hr Q10H IV 03/13/25 08:45 03/14/25 04:36 100 MLS/HR Ondansetron HCl 4 mg Q4HP PRN IV 03/13/25 08:45 Acetaminophen 650 mg Q6HP PRN PO 03/13/25 08:45 Acetaminophen/ Hydrocodone Bitart 1 tab Q6HP PRN PO 03/13/25 08:45 03/13/25 23:12 1 TAB Morphine Sulfate 1 mg Q4HP PRN IV 03/13/25 08:45 03/14/25 08:13 1 MG Cyclobenzaprine HCl 10 mg TID PO 03/13/25 14:00 03/14/25 05:57 10 MG Docusate Sodium 100 mg BID PO 03/13/25 10:00 03/14/25 08:16 100 MG Cefazolin Sodium 50 ml @ 100 mls/hr Q8HR IV 03/13/25 14:00 03/15/25 06:29 03/14/25 05:57 100 MLS/HR Nitroglycerin 0.4 mg Q5MINP PRN SL 03/13/25 08:45 Morphine Sulfate 2 mg Q30M PRN IV 03/13/25 08:45 Allopurinol 100 mg DAILY PO 03/13/25 10:00 Losartan Potassium 25 mg DAILY PO 03/13/25 10:00 Metformin HCl 500 mg IBID PO 03/13/25 18:00 03/14/25 05:57 500 MG Metoprolol Succinate 50 mg BID PO 03/13/25 10:00 Hold Pantoprazole Sodium 40 mg BID PO 03/13/25 10:00 03/14/25 08:16 40 MG Timolol Maleate 1 drop QAM EACHEYE 03/14/25 07:00 Amlodipine Besylate 2.5 mg DAILY PO 03/13/25 10:00 Patient Own Medication 1 tab QAM PO 03/14/25 07:00 Isosorbide Mononitrate 30 mg DAILY PO 03/13/25 10:00 Laboratory Laboratory Tests 03/10/25 09:25 Test 03/10/25 09:25 Range/Units Serum Glucose 116 H 74-106 mg/dL Examination: GENERAL:Normal, HEENT:Normal, NECK:Normal, LUNGS:Normal, CVS:Normal, ABDOMEN:Normal, MSK:Normal, SKIN:Normal (Posterior lumbar incision covered with stanislav dressing which is intact and functioning, to accordion drains with output of 50 mL for drain 1. Since surgery, and 50 mL from drain 2. Since surgery), NEURO:Normal (Patient states she has great improvement in her nerve pain, some residual numbness is present however she is up with physical therapy using walker reporting minimal pain at this time), :Normal Problem List/Assessment/Plan Problems: (1) Acute post-operative pain (2) Muscle spasm of back Assessment and Plan POD # 1 Events of today Patient up with physical therapy ambulating with walker 2 x 2 section of strike through noted on drain dressing Drains remain in place until tomorrow due to a higher output and patient is just starting to move around with physical therapy Patient is progressing well Patient reports the pain is well controlled -Disposition: -Pending -Discharge RX: Pending -Follow up appointment: with Dr Adams on pre scheduled postoperative appointment in two weeks [id number] [facility] [address] [place] [address] -Pain: - IV pain meds post op day 1, with PO supplementation, goal is to progress weaning off IV medications and control pain with PO only. morphine 1mg q 4 hours (PAIN 7-10) - P.O. analgesics:Tylenol 650MG (PAIN 1-3) [place] 10/325 mg (PAIN 4-6) - Muscle relaxers scheduled administration. This is a beneficial medications for the incisional pain as it is mostly related to muscle spasms. Flexeril 10 mg TID - Cepacol throat lozenges as needed for sore throat -Antibiotics Operative recommendations: -Postoperative dose:-Post operative antibiotics cefazolin 1 g IV piggyback every 8 hours x 48 hours total of 6 doses -DVT PPX: -Hold all chemical DVT/ blood thinners for 14 days postoperatively -use mechanical DVT PPX such as SCD's, ambulation -Activity: -Pending PT evaluation and patients progression -Sit at side of bed for meals -Goal: Ambulate independently and safely (may use assistive devices if needed) -Medical Therapy goals: -Afebrile- Patient may develop a expected post operative fever by day 2-3, this may not be accompanied with a elevation in WBC. if fever develops: Acetaminophen for fever. Albuterol nebulizer Tx every 12 hours for 24 hours to facilitate adequate lung expansion and prevent development of atelectasis. -Euglycemic: bloods sugars under 130mmol/L for optimal healing -Normotensive: Avoid events of hypertension. This helps to keep post operative healing intact and avoids destabilization of beneficial hemostatic coagulation. -Lumbar: -If patient is comfortable encouraged the patient to lay on their side to facilitate wound healing -Drains: -Hemovac drains: These will be to full compression unless otherwise ordered. Please record and document output AND characteristic of fluid present independently EVERY 6 hours more often as needed. if there in no output indicate this by documenting 0ml. If output is greater than 100 ml in one hour of piter blood call provider. These drains will be removed once the drainage is at a acceptable level (generally less than 100ml in 24 hours) -Stanislav dressing: This will stay in place and will be removed at the patients follow up visit. Nursing is to assess the seal and power source. The seal should be intact and the power source should have a green flashing light indicating it is functioning well. Batteries can last up to 14 days. If a leak develops the dressing edges can be reinforced with a Tegaderm dressing to reestablish intact seal. The Stanislav dressing is NOT a wound vac. This does not get changed, it does not need home health management. -Record output independently, drain 1. Is a deep drain and drain 2. Is a superficial drain. Wound drainage is described by type, color, amount, and odor. Drainage can be 1 Serous: Clear and thin, may be present in healing healthy wound. 2 Serosanguineous containing blood may also be present and healthy healing wound 3. Sanguinous primarily blood 4. Purulent this is thick, white, and pus like. It may be indicated to give of a infection and should constitute a call to the provider immediately with the plan that the sample should be cultured. -Cardozo: discontinued in OR -Dressings Take care not to disrupt the STANISLAV dressing seal. If there is a break in the seal it can be trouble shot with a Tegaderm dressing. -Dressing to Hemovac drains may be changed once the drains have been removed by the provider. -Bowel management: -Colace 100mg bid -Diet: -Clear liquid diet and advance as patient tolerates within dietary limitations ( example: diabetic, Cardiac) -Incentive Spirometer: -10 x hour while awake, RN please educate and observe repeat demonstration, have IS at bedside POD #1 -X-rays: - none indicated at this time -Consults: -Physical Therapy evaluation, treatment recommendations, and discharge recommendations Call with questions Martine Mack [facility]- Orthopaedic Spine Surgery nurse practitioner For Dr Marco Adams Patient was examined, chart reviewed, labs evaluated, and diagnostic studies and findings analyzed. Case was discussed with Dr. Rajendra Adams who formulated the plan of care. This medical document was created using an electronic medical record system with [employer] dictation system. Although this document has been carefully reviewed, there might still be some phonetic and typographical errors. These areas are purely typographical due to imperfections of the software programs, and do not reflect any compromise in the patient's medical care. My Orders My Orders Orders - CHEYANNE MACK NP Procedure Category Date Status Time Admit ADMIT 03/13/25 Transmitted 12:25 Plan discussed with Plan discussed with: Patient, Other (Samaria Cameron [id number]) Visit Coding Surgery Date of Service if different f: Mar 13, 2025 Billing Provider: CHEYANNE MACK NP Surgery Visit Codes: NOT BILLABLE CHEYANNE MACK NP Mar 14, 2025 09:43
[2025-03-14] MEDS: LOSARTAN POTASSIUM 25 MG TAB PO SCH (09:46)
--- NOTE | 2025-03-14 16:19 | DVHPN2 ---
Subjective Status postday 1 of spinal surgery for spondylolisthesis and spinal stenosis. Recovering well. No significant complaints today Reviewed: H&P Changes from previous H/P or p: No Changes General: Per HPI Objective Vitals Vital Signs Date Time Temp Pulse Resp B/P (MAP) Pulse Ox O2 Delivery O2 Flow Rate FiO2 03/14/25 13:00 98.1 91 19 119/66 (83) 95 98.1 03/14/25 08:00 Room Air* 0 21 Intake/Output Intake and Output 03/14/25 07:00 Intake Total 2190 ml Output Total 2 ml Balance 2188 ml Intake Oral 890 ml IV Total 1300 ml Output Drainage Total 2 ml # Voids 3 Exam GEN: Healthy appearing, well-developed, NAD. HEENT: NC/AT; MMM. CV: RRR, no m/r/g. LUNGS: CTAB, no w/r/c. ABD: Soft, NT/ND, NBS, no masses or organomegaly. EXT: skin Warm, well perfused. no rashes. No clubbing, cyanosis, or edema. NEURO: Ambulating with no limitations. No focal deficits. Medications Current Medications Medications Dose Ordered Sig/Eboni Route Start Time Stop Time Status Last Admin Dose Admin Dextrose/Sodium Chloride 1,000 ml @ 100 mls/hr Q10H IV 03/13/25 08:45 03/14/25 14:44 100 MLS/HR Ondansetron HCl 4 mg Q4HP PRN IV 03/13/25 08:45 Acetaminophen 650 mg Q6HP PRN PO 03/13/25 08:45 Acetaminophen/ Hydrocodone Bitart 1 tab Q6HP PRN PO 03/13/25 08:45 03/14/25 09:58 1 TAB Morphine Sulfate 1 mg Q4HP PRN IV 03/13/25 08:45 03/14/25 08:13 1 MG Cyclobenzaprine HCl 10 mg TID PO 03/13/25 14:00 03/14/25 14:42 10 MG Docusate Sodium 100 mg BID PO 03/13/25 10:00 03/14/25 08:16 100 MG Cefazolin Sodium 50 ml @ 100 mls/hr Q8HR IV 03/13/25 14:00 03/15/25 06:29 03/14/25 14:41 100 MLS/HR Nitroglycerin 0.4 mg Q5MINP PRN SL 03/13/25 08:45 Morphine Sulfate 2 mg Q30M PRN IV 03/13/25 08:45 Allopurinol 100 mg DAILY PO 03/13/25 10:00 03/14/25 10:00 100 MG Losartan Potassium 25 mg DAILY PO 03/13/25 10:00 03/14/25 10:00 25 MG Metformin HCl 500 mg IBID PO 03/13/25 18:00 03/14/25 05:57 500 MG Metoprolol Succinate 50 mg BID PO 03/13/25 10:00 Hold Pantoprazole Sodium 40 mg BID PO 03/13/25 10:00 03/14/25 08:16 40 MG Timolol Maleate 1 drop QAM EACHEYE 03/14/25 07:00 Amlodipine Besylate 2.5 mg DAILY PO 03/13/25 10:00 03/14/25 10:00 2.5 MG Patient Own Medication 1 tab QAM PO 03/14/25 07:00 Isosorbide Mononitrate 30 mg DAILY PO 03/13/25 10:00 03/14/25 10:00 30 MG Laboratory Results Laboratory Tests 03/10/25 09:25 Urinalysis Test 03/03/25 08:39 Urine Color Dark yellow (Yellow) Urine Clarity Ex.turbid (Clear) Urine pH 5.0 (5.0-9.0) Urine Specific [place] 1.020 (1.001-1.035) Urine Protein Trace (Negative) H Urine Ketones Negative (Negative) Urine Blood Trace /uL (Negative) H Urine Nitrite Negative (Negative) Urine Bilirubin Negative (Negative) Urine Urobilinogen Normal mg/dL (Negative) Urine Leukocyte Esterase 3+ /uL (Negative) Urine RBC 26 /hpf (0 - 4) Urine Microscopic WBC 77 /HPF (0-5) H Urine Squamous Epithelial Cells Many /hpf (<5) Urine Bacteria None seen /hpf (None Seen) Urine Glucose Normal mg/dL (Normal) Labs and/or images reviewed: Labs reviewed by me, Image(s) reviewed by me Assessment/Plan Assessment/Plan 03/14-- 74-year-old female with chronic back pain, history of CAD SP stent, diabetes,. Patient was admitted after scheduled surgery with spinal team for spondylosis and spinal stenosis. Patient is doing well. Needs to stay another midnight for spinal team. Pain is controlled. Patient is able to walk WBAT. No other issues currently. We will adjust diet from regular to diabetic. Spinal stenosis status post spinal surgery Chronic lower back pain Diabetes Coronary artery disease SP stent -prn pain control -prn antiemetics - continue PT -50 PT consulted and following -Hemovac drain dressed, spinal surgery following -diabetic diet -telemetry -full code Plan discussed with: Patient My Orders Orders - ALVIN WINKLER MD Procedure Category Date Status Time Consistent DIET 03/14/25 Transmitted Carb(Ccho)Diabetes Dinner Date of Service: Mar 14, 2025 Billing Provider: ALVIN WINKLER MD Common Visit Codes: [id number] INP/OBS CARE(HIGH) ALVIN WINKLER MD Mar 14, 2025 16:19
[2025-03-15] VITALS (7 sets, daily range): BP systolic 126–146; BP diastolic 67–81; PULSE 89–193; RESP 18–20; TEMP 97.7–98.7; O2SAT 95–100
--- NOTE | 2025-03-15 16:02 | DVHPN2 ---
Progress Note - Surgical Date Seen: Mar 15, 2025 Post op day Post op day: 2 Subjective Patient reports: No new complaints, Feels better Review of Systems: HEENT:Normal, CVS:Normal, RESPIRATORY:Normal, GI:Normal, :Normal, MSK:Normal, NEURO:Abnormal (Historic low back pain, lumbar stenosis with neurogenic claudication) Objective Vital signs Vital Sign Date Time Temp Pulse Resp B/P (MAP) Pulse Ox O2 Delivery O2 Flow Rate FiO2 03/15/25 13:00 98.2 106 18 140/78 (98) 95 98.2 03/15/25 08:00 Room Air* 0 21 Total Intake and Output 03/14/25 03/14/25 03/15/25 15:00 23:00 07:00 Intake Total 100 ml 1275 ml Output Total 80 ml 50 ml Balance 20 ml 1225 ml Medications Current Medications Medications Dose Ordered Sig/Eboni Route Start Time Stop Time Status Last Admin Dose Admin Dextrose/Sodium Chloride 1,000 ml @ 100 mls/hr Q10H IV 03/13/25 08:45 03/15/25 10:14 100 MLS/HR Ondansetron HCl 4 mg Q4HP PRN IV 03/13/25 08:45 Acetaminophen 650 mg Q6HP PRN PO 03/13/25 08:45 Acetaminophen/ Hydrocodone Bitart 1 tab Q6HP PRN PO 03/13/25 08:45 03/15/25 12:17 1 TAB Morphine Sulfate 1 mg Q4HP PRN IV 03/13/25 08:45 03/14/25 08:13 1 MG Cyclobenzaprine HCl 10 mg TID PO 03/13/25 14:00 03/15/25 14:03 10 MG Docusate Sodium 100 mg BID PO 03/13/25 10:00 03/15/25 09:57 100 MG Nitroglycerin 0.4 mg Q5MINP PRN SL 03/13/25 08:45 Morphine Sulfate 2 mg Q30M PRN IV 03/13/25 08:45 Allopurinol 100 mg DAILY PO 03/13/25 10:00 03/15/25 09:58 100 MG Losartan Potassium 25 mg DAILY PO 03/13/25 10:00 03/15/25 09:57 25 MG Metformin HCl 500 mg IBID PO 03/13/25 18:00 03/15/25 06:17 500 MG Metoprolol Succinate 50 mg BID PO 03/13/25 10:00 Hold Pantoprazole Sodium 40 mg BID PO 03/13/25 10:00 03/15/25 09:56 40 MG Timolol Maleate 1 drop QAM EACHEYE 03/14/25 07:00 Amlodipine Besylate 2.5 mg DAILY PO 03/13/25 10:00 03/15/25 09:57 2.5 MG Patient Own Medication 1 tab QAM PO 03/14/25 07:00 03/15/25 06:18 1 TAB Isosorbide Mononitrate 30 mg DAILY PO 03/13/25 10:00 03/15/25 09:58 30 MG Laboratory Laboratory Tests 03/10/25 09:25 Test 03/10/25 09:25 Range/Units Serum Glucose 116 H 74-106 mg/dL Examination: GENERAL:Normal, HEENT:Normal, NECK:Normal, LUNGS:Normal, CVS:Normal, ABDOMEN:Normal, MSK:Normal, SKIN:Normal (Posterior lumbar incision covered with stanislav dressing which is intact and functioning, to accordion drains with output of 0 mL for drain 1. Since surgery, and 50 mL from drain 2. Since surgery), NEURO:Normal (Patient verbalized vast improvement in her preoperative symptoms), :Normal Problem List/Assessment/Plan Problems: (1) Acute post-operative pain (2) Muscle spasm of back Assessment and Plan POD # 2 Events of today Patient up with physical therapy ambulating with walker 2 x 2 section of strike through noted on drain dressing Drains discontinued Patient is progressing well Patient reports the pain is well controlled Plan to discharge today -Disposition: home with home health -Discharge RX: Oral analgesics and muscle relaxers and stool softener sent to patient's pharmacy of choice -Follow up appointment: with Dr Adams on pre scheduled postoperative appointment in two weeks [id number] [facility] [address] [place] [id number] -Pain: - IV pain meds post op day 1, with PO supplementation, goal is to progress weaning off IV medications and control pain with PO only. morphine 1mg q 4 hours (PAIN 7-10) - P.O. analgesics:Tylenol 650MG (PAIN 1-3) [place] 10/325 mg (PAIN 4-6) - Muscle relaxers scheduled administration. This is a beneficial medications for the incisional pain as it is mostly related to muscle spasms. Flexeril 10 mg TID - Cepacol throat lozenges as needed for sore throat -Antibiotics Operative recommendations: -Postoperative dose:-Post operative antibiotics cefazolin 1 g IV piggyback every 8 hours x 48 hours total of 6 doses -DVT PPX: -Hold all chemical DVT/ blood thinners for 14 days postoperatively -use mechanical DVT PPX such as SCD's, ambulation -Activity: -PT evaluation and patients progression -Sit at side of bed for meals -Goal: Ambulate independently and safely (may use assistive devices if needed) -Medical Therapy goals: -Afebrile- Patient may develop a expected post operative fever by day 2-3, this may not be accompanied with a elevation in WBC. if fever develops: Acetaminophen for fever. Albuterol nebulizer Tx every 12 hours for 24 hours to facilitate adequate lung expansion and prevent development of atelectasis. -Euglycemic: bloods sugars under 130mmol/L for optimal healing -Normotensive: Avoid events of hypertension. This helps to keep post operative healing intact and avoids destabilization of beneficial hemostatic coagulation. -Lumbar: -If patient is comfortable encouraged the patient to lay on their side to facilitate wound healing -Dressings Take care not to disrupt the STANISLAV dressing seal. If there is a break in the seal it can be trouble shot with a Tegaderm dressing. -Dressing to Hemovac drains may be changed as needed by nursing staff -Bowel management: -Colace 100mg bid -Diet: patient tolerating diet -Incentive Spirometer: -10 x hour while awake, RN please educate and observe repeat demonstration, have IS at bedside POD #1 -X-rays: - none indicated at this time -Consults: -Physical Therapy evaluation, treatment recommendations, and discharge recommendations Call with questions Martine Orozco ACNP- Orthopaedic Spine Surgery nurse practitioner For Dr Marco Adams Patient was examined, chart reviewed, labs evaluated, and diagnostic studies and findings analyzed. Case was discussed with Dr. Rajendra Adams who formulated the plan of care. This medical document was created using an electronic medical record system with [employer] system. Although this document has been carefully reviewed, there might still be some phonetic and typographical errors. These areas are purely typographical due to imperfections of the software programs, and do not reflect any compromise in the patient's medical care. Plan discussed with Plan discussed with: Patient, Other (Sherman RN) Visit Coding Surgery Date of Service if different f: Mar 13, 2025 Billing Provider: CHEYANNE OROZCO NP Surgery Visit Codes: NOT BILLABLE CHEYANNE OROZCO NP Mar 15, 2025 16:02
[2025-03-15] MEDS ORDERED: CYCL-611 PO (16:45)
[2025-03-15] MEDS ORDERED: HYDR-4798 PO ×2 (16:45→16:54)
--- NOTE | 2025-03-15 16:56 | DVHDS2 ---
Discharge Summary Date of Admission Mar 13, 2025 at 08:43 Date of Discharge: Mar 15, 2025 Admitting Diagnosis Lumbar Degenerative Disk Disease and Lumbar Spinal Stenosis with lumbar spondylolisthesis causing Incapacitating back pain, radiculopathy and progressive neurologic deficit Wounds: Posterior lumbar surgical incision covered with isis dressing. Two drain sites to the right lateral aspect. New dressing placed prior to discharge Labs/Diagnostic Data: Laboratory Results Test 03/13/25 12:51 03/10/25 09:25 03/03/25 08:39 POC Glucose 147 mg/dl (70-106) White Blood Count 6.6 10^3/uL (4.4-10.8) Red Blood Count 4.88 10^6/uL (4.0-5.20) Hemoglobin 14.0 g/dL (12.2-16.2) Hematocrit 41.7 % (36.0-46.0) Mean Corpuscular Volume 85.4 fL (80.0-100.0) Mean Corpuscular Hemoglobin 28.7 pg (28.0-32.0) Mean Corpuscular Hemoglobin Concent 33.6 g/dL (32.0-36.0) Red Cell Distribution Width 15.5 % (11.8-14.3) Platelet Count 274 10^3/uL (140-450) Mean Platelet Volume 8.1 fL (6.9-10.8) Neutrophils (%) (Auto) 52.8 % (37.0-80.0) Lymphocytes (%) (Auto) 38.4 % (10.0-50.0) Monocytes (%) (Auto) 4.9 % (0.0-12.0) Eosinophils (%) (Auto) 2.7 % (0.0-7.0) Basophils (%) (Auto) 1.2 % (0.0-2.0) Neutrophils # (Auto) 3.5 10 ^3/uL (1.6-8.6) Lymphocytes # (Auto) 2.6 10 ^3/uL (0.4-5.4) Monocytes # (Auto) 0.3 10 ^3/uL (0-1.3) Eosinophils # (Auto) 0.2 10 ^3/uL (0-0.8) Basophils # (Auto) 0.1 10 ^3/uL (0-0.2) Nucleated Red Blood Cells 0.0 % Prothrombin Time 10.5 sec (9.3-11.8) Prothrombin Time INR 0.99 (0.9-1.15) Activated Partial Thromboplast Time 28.2 SEC (24.5-34.5) Sodium Level 142 mmol/L (136-145) Potassium Level 3.5 mmol/L (3.5-5.1) Chloride Level 104 mmol/L (98-107) Carbon Dioxide Level 28 mmol/L (20-31) Anion Gap 10 (5-15) Blood Urea Nitrogen 14 mg/dL (9-23) Creatinine 0.96 mg/dL (0.550-1.02) Glomerular Filtration Rate Calc 62 mL/min (>90) BUN/Creatinine Ratio 14.6 (10.0-20.0) Serum Glucose 116 mg/dL (74-106) Calcium Level 10.0 mg/dL (8.7-10.4) Total Bilirubin 0.5 mg/dL (0.2-1.0) Aspartate Amino Transferase (AST) 11 U/L (13-40) Alanine Aminotransferase (ALT) 13 U/L (7-40) Alkaline Phosphatase 74 U/L (46-116) Total Protein 6.8 g/dL (5.7-8.2) Albumin 4.3 g/dL (3.2-4.8) Urine Color Dark yellow (Yellow) Urine Clarity Ex.turbid (Clear) Urine pH 5.0 (5.0-9.0) Urine Specific [place] 1.020 (1.001-1.035) Urine Protein Trace (Negative) Urine Ketones Negative (Negative) Urine Blood Trace /uL (Negative) Urine Nitrite Negative (Negative) Urine Bilirubin Negative (Negative) Urine Urobilinogen Normal mg/dL (Negative) Urine Leukocyte Esterase 3+ /uL (Negative) Urine RBC 26 /hpf (0 - 4) Urine Microscopic WBC 77 /HPF (0-5) Urine Squamous Epithelial Cells Many /hpf (<5) Urine Bacteria None seen /hpf (None Seen) Urine Glucose Normal mg/dL (Normal) Other Laboratory Tests 03/10/25 09:25 Brief Hx & Hospital Course: The patient arrived for a elective spine surgery with Dr. ADAMS. Surgery went as planned with no complications. After a short stay in the PACU patient was admitted to the hospital for postoperative care and pain management over the course of 2 postoperative days the patient was able to tolerate a diet, ambulate independently, the pain has been managed with oral analgesics. The surgical site is well-approximated with sutures, some residual drainage continues from drain insertion sites after removal, however it is manageable with daily wound care and dressing changes. Some improvement to preoperative symptoms of extremities, strength and motion. There is new post operative pain that is localized to the surgical site. The patient will follow-up with Dr. Adams for wound check and suture check . Operations or Procedures Procedure: Lumbar 5 laminectomy with Lumbar 5 foraminotomies and facetectomies to decompress central canal and Lumbar 5 nerve roots Lumbar 4 laminectomy with Lumbar 4 foraminotomies and facetectomies to decompress central canal and Lumbar 4 nerve roots Lumbar 3 laminectomy with Lumbar 3 foraminotomies and facetectomies to decompress central canal and Lumbar 4 nerve roots Lumbar 3 to 5 posterior spinal intertransverse fusion with bone graft Lumbar 4 to 5 posterior spinal interbody fusion with PEEK cage Lumbar 3 to 5 posterior spinal instrumentation with pedicle screws Condition at Discharge: Good Final Diagnosis/Problems List Elective lumbar spine surgery with Dr Rajendra Adams for a diagnosis of Lumbar Degenerative Disk Disease and Lumbar Spinal Stenosis with lumbar spondylolisthesis causing Incapacitating back pain, radiculopathy and progressive neurologic deficit Discharge Disposition: Home Discharge Instruct/Medications Diet: See Comment Diet comment: Resume your regular diet Activity: No Restrictions, As Tolerated Activity comment: Activity as tolerated, no excessive lifting until you are cleared by the surgeon on your postoperative visit in a week Follow Up/Referral: Call [phone] for a appointment, or to change or confirm your appoinment [id number] [place] [address], [place] [phone] Medications: Medications sent to your pharmacy of choice New Medications: Hydrocodone-Acetaminophen (Hydrocodone Bitartrate/AC 10-325 mg) 1 Tab Tab 1 TAB PO QID PRN for 7 Days, #28 TAB 0 Refills Cyclobenzaprine HCl (Cyclobenzaprine Hydrochlo) 10 Mg Tab 10 MG PO TID for 30 Days, #90 TAB Continued Medications: Allopurinol (Allopurinol) 100 Mg Tab 1 TAB PO DAILY Amlodipine Besylate (Amlodipine Besylate) 2.5 Mg Tab 2.5 MG PO DAILY, TAB Dapagliflozin Propanediol (Farxiga) 10 Mg Tab 1 TAB PO QAM Isosorbide Mononitrate (Isosorbide Mononitrate Er) 30 Mg Tab 30 MG PO DAILY, TAB Latanoprost (Latanoprost) 0.005 % Dasia 0.005 % OP, ML Losartan Potassium (Losartan Potassium) 25 Mg Tab 25 MG PO DAILY, TAB Meloxicam (Meloxicam) 15 Mg Tab 15 MG PO PRN, TAB Metformin Hydrochloride (Metformin Hcl) 500 Mg Tab 500 MG PO BID, TAB Metoprolol Succinate (Metoprolol Succinate Er) 50 Mg Tab 1 TAB PO BID Pantoprazole Sodium Sesquihydr (Pantoprazole Sodium Dr) 40 Mg Tab 1 TAB PO BID Potassium Chloride (Klor-Con M10) 10 Meq Tab Unknown Dose PO, TAB Semaglutide (Ozempic) 4 Mg/3 Ml Inj SC Timolol Maleate (Ophth) (Timolol Maleate) 0.5 % Dasia 1 DROP EACHEYE QAM Scheduled Allopurinol (Allopurinol), 1 TAB PO DAILY, (Reported) Amlodipine Besylate (Amlodipine Besylate), 2.5 MG PO DAILY, (Reported) Cyclobenzaprine HCl (Cyclobenzaprine Hydrochlo), 10 MG PO TID Dapagliflozin Propanediol (Farxiga), 1 TAB PO QAM, (Reported) Isosorbide Mononitrate (Isosorbide Mononitrate Er), 30 MG PO DAILY, (Reported) Losartan Potassium (Losartan Potassium), 25 MG PO DAILY, (Reported) Meloxicam (Meloxicam), 15 MG PO PRN, (Reported) Metformin Hydrochloride (Metformin Hcl), 500 MG PO BID, (Reported) Metoprolol Succinate (Metoprolol Succinate Er), 1 TAB PO BID, (Reported) Pantoprazole Sodium Sesquihydr (Pantoprazole Sodium Dr), 1 TAB PO BID, (Reported) Timolol Maleate (Ophth) (Timolol Maleate), 1 DROP EACHEYE QAM, (Reported) Scheduled PRN Hydrocodone-Acetaminophen (Hydrocodone Bitartrate/AC 10-325 mg), 1 TAB PO QID PRN Miscellaneous Medications Latanoprost (Latanoprost), 0.005 % OP, (Reported) Potassium Chloride (Klor-Con M10), Unknown Dose PO, (Reported) Semaglutide (Ozempic), SC, (Reported) 20 Discharge Statement: "Patient was advised to return to the ER or call 911 if any headaches, dizziness, shortness of breath, chest pain, abdominal pain, bleeding, fevers, or worsening of medical condition. Patient was counseled about treatment plan, medications, possible side effects, patientverbalized understanding. All questions were answered to the best of my ability. This discharge took greater then 30 minutes in planning, reviewing documentation, counseling the patient, and discussing with other team members." DME: Diagnosis: Lumbar Degenerative Disk Disease and Lumbar Spinal Stenosis with lumbar spondylolisthesis causing Incapacitating back pain, radiculopathy and progressive neurologic deficit ASSESSMENT ASSESSMENT Assessment Elective lumbar spine surgery with Dr Rajendra Adams for a diagnosis of lumbar Stenosis with neurogenic claudication Problems: (1) Hypertension Assessments: Chronic handled by patient's PCP (2) Chest pain Assessments: Resolved during hospital stay (3) Accelerated hypertension Assessments: Chronic handled by patient's PCP (4) Autonomic dysfunction Assessments: Chronic handled by patient's PCP (5) Muscle spasm of back Assessments: Medications sent to patient's preferred pharmacy (6) Acute post-operative pain Assessments: Medications sent to patient's preferred pharmacy, postoperative appointment with Master P in one week (7) S/P rotator cuff repair Assessments: Historical CHEYANNE MACK NP Mar 15, 2025 16:56
--- NOTE | 2025-03-15 16:56 | DVHPN2 ---
Subjective Status postday 1 of spinal surgery for spondylolisthesis and spinal stenosis. Recovering well. No significant complaints today Reviewed: H&P Changes from previous H/P or p: No Changes General: Per HPI Objective Vitals Vital Signs Date Time Temp Pulse Resp B/P (MAP) Pulse Ox O2 Delivery O2 Flow Rate FiO2 03/15/25 13:00 98.2 106 18 140/78 (98) 95 98.2 03/15/25 08:00 Room Air* 0 21 Intake/Output Intake and Output 03/15/25 07:00 Intake Total 1375 ml Output Total 130 ml Balance 1245 ml Intake Oral 725 ml IV Total 650 ml Output Drainage Total 130 ml # Voids 4 Exam GEN: Healthy appearing, well-developed, NAD. HEENT: NC/AT; MMM. CV: RRR, no m/r/g. LUNGS: CTAB, no w/r/c. ABD: Soft, NT/ND, NBS, no masses or organomegaly. EXT: skin Warm, well perfused. no rashes. No clubbing, cyanosis, or edema. NEURO: Ambulating with no limitations. No focal deficits. Medications Current Medications Medications Dose Ordered Sig/Eboni Route Start Time Stop Time Status Last Admin Dose Admin Dextrose/Sodium Chloride 1,000 ml @ 100 mls/hr Q10H IV 03/13/25 08:45 03/15/25 10:14 100 MLS/HR Ondansetron HCl 4 mg Q4HP PRN IV 03/13/25 08:45 Acetaminophen 650 mg Q6HP PRN PO 03/13/25 08:45 Acetaminophen/ Hydrocodone Bitart 1 tab Q6HP PRN PO 03/13/25 08:45 03/15/25 12:17 1 TAB Morphine Sulfate 1 mg Q4HP PRN IV 03/13/25 08:45 03/14/25 08:13 1 MG Cyclobenzaprine HCl 10 mg TID PO 03/13/25 14:00 03/15/25 14:03 10 MG Docusate Sodium 100 mg BID PO 03/13/25 10:00 03/15/25 09:57 100 MG Nitroglycerin 0.4 mg Q5MINP PRN SL 03/13/25 08:45 Morphine Sulfate 2 mg Q30M PRN IV 03/13/25 08:45 Allopurinol 100 mg DAILY PO 03/13/25 10:00 03/15/25 09:58 100 MG Losartan Potassium 25 mg DAILY PO 03/13/25 10:00 03/15/25 09:57 25 MG Metformin HCl 500 mg IBID PO 03/13/25 18:00 03/15/25 06:17 500 MG Metoprolol Succinate 50 mg BID PO 03/13/25 10:00 Hold Pantoprazole Sodium 40 mg BID PO 03/13/25 10:00 03/15/25 09:56 40 MG Timolol Maleate 1 drop QAM EACHEYE 03/14/25 07:00 Amlodipine Besylate 2.5 mg DAILY PO 03/13/25 10:00 03/15/25 09:57 2.5 MG Patient Own Medication 1 tab QAM PO 03/14/25 07:00 03/15/25 06:18 1 TAB Isosorbide Mononitrate 30 mg DAILY PO 03/13/25 10:00 03/15/25 09:58 30 MG Laboratory Results Laboratory Tests 03/10/25 09:25 Urinalysis Test 03/03/25 08:39 Urine Color Dark yellow (Yellow) Urine Clarity Ex.turbid (Clear) Urine pH 5.0 (5.0-9.0) Urine Specific [place] 1.020 (1.001-1.035) Urine Protein Trace (Negative) H Urine Ketones Negative (Negative) Urine Blood Trace /uL (Negative) H Urine Nitrite Negative (Negative) Urine Bilirubin Negative (Negative) Urine Urobilinogen Normal mg/dL (Negative) Urine Leukocyte Esterase 3+ /uL (Negative) Urine RBC 26 /hpf (0 - 4) Urine Microscopic WBC 77 /HPF (0-5) H Urine Squamous Epithelial Cells Many /hpf (<5) Urine Bacteria None seen /hpf (None Seen) Urine Glucose Normal mg/dL (Normal) Labs and/or images reviewed: Labs reviewed by me, Image(s) reviewed by me Assessment/Plan Assessment/Plan 03/14-- 74-year-old female with chronic back pain, history of CAD SP stent, diabetes,. Patient was admitted after scheduled surgery with spinal team for spondylosis and spinal stenosis. Patient is doing well. Needs to stay another midnight for spinal team. Pain is controlled. Patient is able to walk WBAT. No other issues currently. We will adjust diet from regular to diabetic. 03/15 - patient had near fall last night. Fall was broken by her hands. No hand pain. Neurovascularly intact. No deformities. Patient continues to tolerate p.o.. Spinal surgery plan for discharge today. Drains removed. See spinal surgery discharge summary. Spinal stenosis status post spinal surgery Chronic lower back pain Diabetes Coronary artery disease SP stent -prn pain control -prn antiemetics - continue PT -50 PT consulted and following -Hemovac drain dressed, spinal surgery following -diabetic diet -telemetry -full code Plan discussed with: Patient Date of Service: Mar 15, 2025 Billing Provider: ALVIN WINKLER MD Common Visit Codes: [id number] INP/OBS CARE(MOD) ALVIN WINKLER MD Mar 15, 2025 16:56
[2025-03-15] MEDS ORDERED: PHENYLEPHRINE HCL 10 MG/ML VL IV ONE (18:59)
[2025-03-15] MEDS ORDERED: ETOMIDATE (2MG/ML) 10ML VIAL IV ONE (18:59)
[2025-03-15] MEDS ORDERED: SUCCINYLCHOLINE CHLORIDE 20 MG/ML 10ML VIAL IV ONE (18:59)
== END 2025-03-15 19:00 | disposition home or self-care (01) | DRG 428 ==
LOC: SUR 06:10 → OVERFLOW 08:43 → TELE-WESTW 14:30
PROVIDERS: ADMIT Orthopaedic Surgery; ATTEND Nurse Practitioner
PROC: 01NB0ZZ Release Lumbar Nerve, Open Approach (ICD-10-PCS; 2025-03-13)
PROC: 00NY0ZZ Release Lumbar Spinal Cord, Open Approach (ICD-10-PCS; 2025-03-13)
PROC: 4A11X4G Monitoring of Peripheral Nervous Electrical Activity, Intraoperative, External Approach (ICD-10-PCS; 2025-03-13)
PROC: 0SG00AJ Fusion of Lumbar Vertebral Joint with Interbody Fusion Device, Posterior Approach, Anterior Column, Open Approach (ICD-10-PCS; 2025-03-13)
PROC: 0SG10K1 Fusion of 2 or more Lumbar Vertebral Joints with Nonautologous Tissue Substitute, Posterior Approach, Posterior Column, Open Approach (ICD-10-PCS; principal; 2025-03-13 07:51)
DX: M48.062 Spinal stenosis, lumbar region with neurogenic claudication (principal); I10 Essential (primary) hypertension; E11.43 Type 2 diabetes mellitus with diabetic autonomic (poly)neuropathy; I25.10 Atherosclerotic heart disease of native coronary artery without angina pectoris; G89.29 Other chronic pain; M43.16 Spondylolisthesis, lumbar region; M51.369 Other intervertebral disc degeneration, lumbar region without mention of lumbar back pain or lower extremity pain; M47.896 Other spondylosis, lumbar region; M51.16 Intervertebral disc disorders with radiculopathy, lumbar region; R29.818 Other symptoms and signs involving the nervous system
CPT/HCPCS: 36415; 72100; 76000; 80053; 81001; 82962; 85025; 85610; 85730; 86850; 86900; 86901; 97110; 97116; 97163; A4344; G0378; J0330; J1100; J1956; J2250; J2704; J7042

== ENCOUNTER 2025-04-18 13:39 | Outpatient (CLI) | payer BC ==
[~2025-04-18 13:39] MED LIST changes: +CYCL-611 PO; +HYDR-4798 PO
[2025-04-18 14:26] LABS: Albumin 4.5 g/dL (3.2-4.8); Alkaline Phosphatase 79 U/L (46-116); Anion Gap 10 (5-15); BUN/Creatinine Ratio 9.5 (10.0-20.0); Calcium 9.5 mg/dL (8.7-10.4); Carbon Dioxide 27 mmol/L (20-31); Chloride 105 mmol/L (98-107); Sodium 142 mmol/L (136-145); Total Protein 7.3 g/dL (5.7-8.2)
[2025-04-18 14:27] LABS: Bilirubin, Total 0.4 mg/dL (0.2-1.0)
[2025-04-18 14:32] LABS: Alanine Aminotransferase < 9 U/L (7-40); Blood Urea Nitrogen 8 mg/dL (9-23); Glucose 120 mg/dL (74-106); Potassium 3.3 mmol/L (3.5-5.1)
[2025-04-18 17:56] LABS: Urine Protein, UAD Negative (Negative)
[2025-04-18 18:00] LABS: Urine WBC Clumps 10 /hpf (None Seen)
[2025-04-18 18:01] LABS: Urine Budding Yeast Few /hpf (None Seen)
== END 2025-04-18 17:00 | disposition home or self-care (01) ==
LOC: LAB 13:39
PROVIDERS: ATTEND Internal Medicine
DX: I12.9 Hypertensive chronic kidney disease with stage 1 through stage 4 chronic kidney disease, or unspecified chronic kidney disease (principal); N18.32 Chronic kidney disease, stage 3b; M48.00 Spinal stenosis, site unspecified
CPT/HCPCS: 36415; 80053; 81001; 85652; 86141

== ENCOUNTER 2025-07-01 13:11 | Outpatient (CLI) | payer BC ==
[2025-07-01 14:30] LABS: Triglycerides 122 mg/dL (< 150)
[2025-07-01 14:32] LABS: HDL Cholesterol 47 mg/dL (40-59)
[2025-07-01 14:33] LABS: Cholesterol 230 mg/dL (< 200)
== END 2025-07-01 17:00 | disposition home or self-care (01) ==
LOC: LAB 13:11
PROVIDERS: ATTEND Internal Medicine
DX: Z12.11 Encounter for screening for malignant neoplasm of colon (principal); E11.9 Type 2 diabetes mellitus without complications
CPT/HCPCS: 36415; 80061; 83036

== ENCOUNTER 2025-07-09 11:40 | Outpatient (CLI) | payer BC | END 2025-07-09 17:00 | disposition home or self-care (01) | LOC: LAB 11:40 | PROVIDERS: ATTEND Internal Medicine | DX: E11.9 Type 2 diabetes mellitus without complications (principal); Z12.11 Encounter for screening for malignant neoplasm of colon | CPT/HCPCS: 82270 ==

== ENCOUNTER 2025-07-18 08:58 | Day surgery (SDC) | payer BC ==
[2025-07-15 11:01] LABS: Hematocrit 39.3 % (36.0-46.0); Hemoglobin 13.1 g/dL (12.2-16.2); Mean Corpuscular Hemoglobin 27.9 pg (28.0-32.0); Mean Corpuscular Volume 84.0 fL (80.0-100.0); Nucleated Red Blood Cells % 0.1 %
[2025-07-15 11:19] LABS: INR 0.97 (0.9-1.15); Partial Thromboplastin Time 28.4 SEC (24.5-34.5); Prothrombin Time 10.3 sec (9.3-11.8)
[2025-07-15 11:30] LABS: Alanine Aminotransferase 13 U/L (7-40); Albumin 4.2 g/dL (3.2-4.8); Alkaline Phosphatase 87 U/L (46-116); Anion Gap 10 (5-15); BUN/Creatinine Ratio 16.3 (10.0-20.0); Blood Urea Nitrogen 14 mg/dL (9-23); Calcium 9.3 mg/dL (8.7-10.4); Carbon Dioxide 29 mmol/L (20-31); Chloride 105 mmol/L (98-107); Glucose 94 mg/dL (74-106); Potassium 3.6 mmol/L (3.5-5.1); Sodium 144 mmol/L (136-145); Total Protein 7.4 g/dL (5.7-8.2)
[2025-07-15 11:31] LABS: Bilirubin, Total 0.3 mg/dL (0.2-1.0)
[~2025-07-18] VITALS: Ht 160 cm; Wt 86.2 kg
[~2025-07-18 08:58] MED LIST changes: -ALLO100T PO; +ASPI1TAB20 PO; -CYCL-611 PO; -HYDR-4798 PO; -MELO15TA29 PO
[2025-07-18] MEDS ORDERED: SODIUM CHLORIDE LOCK 10 ML ONE (09:08)
[2025-07-18 12:35] VITALS: PULSE 100; RESP 16; O2SAT 96
[2025-07-18] MEDS: MIDAZOLAM HCL 5 MG/ML-1ML VIAL ONE (12:39)
[2025-07-18] MEDS: fentaNYL CITRATE 100 MCG/2 ML VL ONE (12:39)
[2025-07-18] MEDS: diphenhydrAMINE HCL 50 MG/1 ML VL ONE (12:39)
[2025-07-18 13:01] VITALS: PULSE 92; RESP 16; TEMP 99.3; O2SAT 100
--- NOTE | 2025-07-18 13:03 | DVHOP2 ---
Operative Report DATE OF OPERATION: 07/18/25 PROCEDURE: Colonoscopy with cold snare polypectomy. PREOPERATIVE INDICATION: The patient is a 74 -year-old female undergoing colonoscopy for colon cancer screening with history of diverticulosis POSTOPERATIVE DIAGNOSES: 1. There were two less than 5 mm benign-appearing ascending colon polyps that were seen and removed via cold biopsy forceps and by cold snare polypectomy 2. Moderate scattered diverticular disease most prominent in the sigmoid 3. Trace internal hemorrhoids otherwise normal examination up to the cecum 4. Slightly limited study due to poor prep however after careful irrigation aspiration no gross lesions were seen PROCEDURE PERFORMED BY: Rj Vasquez M.D. SCOPE: Olympus videocolonoscope. ASA CLASS: 2 PREOPERATIVE MEDICATIONS: Versed 3 mg IV, fentanyl 75 mcg IV, Benadryl 50 mg IV PROCEDURE IN DETAIL: After obtaining an informed consent, the patient was placed on left lateral decubitus position. She was then sedated with the above medications. A rectal examination was performed that was normal. The colonoscope was then passed through the anus into the rectosigmoid and through the descending, transverse, and ascending colon up to the cecum with visualization of the appendiceal orifice, base of the cecum and the ileocecal valve. The colonoscope was then withdrawn. The distal 3-5 cm of the terminal ileum were normal In the ascending colon there was a 5 mm benign-appearing polyp that was seen and removed by cold snare polypectomy There was another 2-3 mm benign-appearing polyp that was seen and removed by cold biopsy forceps completely and the specimens were retrieved Patient had scattered diverticular disease most prominent in the sigmoid. The study was somewhat limited due to poor prep with some residual stool After careful irrigation aspiration no gross lesions were seen. On retroflexion the fundus and cardia were normal The patient tolerated the procedure well without difficulty. WITHDRAWAL TIME: 9 minutes QUALITY OF THE PREP: [place] Bowel Prep score: 7. COMPLICATIONS : None SPECIMENS: Ascending colon polyps x2 DISPOSITION: Stable D/C to home PLAN: 1. Repeat colonoscopy base on biopsy result likely in three years with a better two day bowel prep 2. Resume GI soft diet advance as tolerated 3. Increase fluid and fiber intake 4. Outpatient follow up with me in 2-4 weeks to review results and discuss further management RJ VASQUEZ MD Jul 18, 2025 13:02
[2025-07-18 13:31] VITALS: BP 153/93; PULSE 89; RESP 19; O2SAT 96
== END 2025-07-18 13:40 | disposition home or self-care (01) ==
LOC: GI 08:58
PROVIDERS: ATTEND Internal Medicine Gastroenterology
DX: K57.30 Diverticulosis of large intestine without perforation or abscess without bleeding (principal); D12.2 Benign neoplasm of ascending colon; K64.8 Other hemorrhoids; I10 Essential (primary) hypertension; I25.10 Atherosclerotic heart disease of native coronary artery without angina pectoris; E11.9 Type 2 diabetes mellitus without complications; E66.9 Obesity, unspecified; Z98.890 Other specified postprocedural states; Z79.899 Other long term (current) drug therapy; Z95.5 Presence of coronary angioplasty implant and graft; Z95.0 Presence of cardiac pacemaker; Z98.891 History of uterine scar from previous surgery; Z79.82 Long term (current) use of aspirin; Z79.84 Long term (current) use of oral hypoglycemic drugs
CPT/HCPCS: 36415; 45380; 45385; 80053; 85025; 85610; 85730; 88305; J1200; J2250; J3010; J7030; 99152

== ENCOUNTER 2025-08-13 11:38 | Outpatient (CLI) | payer BC ==
[2025-08-13 13:06] LABS: Albumin 4.4 g/dL (3.2-4.8); Alkaline Phosphatase 80 U/L (46-116); Bilirubin, Direct 0.1 mg/dL (<0.3); Bilirubin, Total 0.4 mg/dL (0.2-1.0); Creatine Kinase IFCC 79 U/L (34-145); Total Protein 7.5 g/dL (5.7-8.2)
[2025-08-13 13:08] LABS: Alanine Aminotransferase < 9 U/L (7-40)
== END 2025-08-13 17:00 | disposition home or self-care (01) ==
LOC: LAB 11:38
PROVIDERS: ATTEND Internal Medicine
DX: E78.5 Hyperlipidemia, unspecified (principal)
CPT/HCPCS: 36415; 80076; 82550